=== PATIENT | male | born 1950 | race Caucasian/White ===

== ENCOUNTER → 2016-04-06 | Outpatient (CLI) | payer OTHER, MEDICARE | LOC: BHFA 08:30 | PROVIDERS: ATTEND Internal Medicine Cardiovascular Disease | DX: I35.0 Nonrheumatic aortic (valve) stenosis (principal) ==

== ENCOUNTER 2016-04-14 06:28 | Day surgery (SDC) | payer OTHER, MEDICARE ==
[2016-04-14] MEDS ORDERED: MIDAZOLAM 2 MG/2 ML VIAL IVP ONE (06:40)
[2016-04-14] MEDS ORDERED: BENZOCAINE UNIT DOSE SPRAY HURRICAINE MM ONE (06:40)
[2016-04-14] MEDS ORDERED: fentaNYL 100 MCG/2 ML INJ IVP ONE (06:40)
[2016-04-14] MEDS ORDERED: NS 1,000 ML IV ONE (06:40)
[2016-04-14 08:09] LABS: % IMMATURE GRANULYOCYTES 0.3 % (0.0-1.1); ABSOLUTE IMMATURE GRANULOCYTES 0.02 10^3/uL (0.00-0.10); ADD DIFF? NO; ADD MORPH? NO; ADD SCAN? NO; ATYPICAL LYMPHOCYTE FLAG 20 (0-99); FRAGMENT RBC FLAG 0 (0-99); HEMATOCRIT 43.6 % (40.0-51.0); HEMOGLOBIN 14.2 g/dL (13.7-17.5); LEFT SHIFT FLG 0 (0-99); LIPEMIA HEMOLYSIS FLAG 80 (0-99); MEAN CELL HEMOGLOBIN 30.1 pg (27.9-34.1); MEAN CELL HEMOGLOBIN CONCENTR. 32.6 g/dL (32.4-36.7); MEAN CELL VOLUME 92.6 fL (81.5-99.8); MEAN PLATELET VOLUME 10.5 fL (8.7-11.7); PLATELET CLUMPS FLAG 10 (0-99); PLATELET COUNT 236 10^3/uL (150-400); RED BLOOD CELL COUNT 4.71 10^6/uL (4.40-6.38); RED CELL DISTRIBUTION WIDTH 12.1 % (11.5-15.2)
[2016-04-14 08:22] LABS: INR 1.03 (0.83-1.16); PROTIME(PATIENT) 13.4 SEC (12.0-15.0)
[2016-04-14] MEDS ORDERED: MIDAZOLAM 2 MG/2 ML VIAL ONE ×3 (08:22→10:15)
[2016-04-14 08:23] LABS: APTT 32.6 SEC (23.0-38.0)
[2016-04-14] MEDS ORDERED: fentaNYL 100 MCG/2 ML INJ ONE ×2 (08:23→08:41)
[2016-04-14 08:31] LABS: ANION GAP 9 mEq/L (8-16); CARBON DIOXIDE 30 mEq/l (22-31); CHLORIDE 102 mEq/L (97-110); CREATININE 1.1 mg/dL (0.7-1.3); GLOMERULAR FILTRATION RATE > 60; GLUCOSE 131 mg/dL (70-100); POTASSIUM 4.3 mEq/L (3.5-5.2); SODIUM 141 mEq/L (134-144)
[2016-04-14] MEDS ORDERED: HEPARIN 10,000 UNIT/10 ML MDV ONE (08:41)
[2016-04-14] MEDS ORDERED: LIDOCAINE 1% 30 ML SDV ONE (08:41)
[2016-04-14] MEDS ORDERED: IOPAMIDOL (ISOVUE 370) 100 ML BTL IV ONE (08:42)
[2016-04-14] MEDS ORDERED: VERAPAMIL 5 MG/2 ML VIAL ONE (08:42)
--- NOTE | 2016-04-14 08:42 | CPEKG ---
Heart Rate: 64 RR Interval: 938 P-R Interval: 200 QRSD Interval: 82 QT Interval: 432 QTC Interval: 446 P [place]: 79 QRS [place]: 60 T Wave [place]: 39 EKG Severity - NORMAL ECG - EKG Impression: SINUS RHYTHM Electronically Signed By: Phillip Malloy 14-Apr-2016 09:01:34
[2016-04-14] MEDS ORDERED: ETOMIDATE 40 MG/20 ML INJ ONE ×2 (09:28→10:18)
[2016-04-14 09:58] LABS: CHOLESTEROL 176 mg/dL (140-220); CHOLESTEROL/HDL RATIO 2.89 RATIO (1.00-4.97); HIGH DENSITY LIPOPROTEIN 61 mg/dL (40-65); LDL/HDL RATIO 1.57 RATIO (1.00-3.64); LOW DENSITY LIPOPROTEIN 96 mg/dL (80-100); MAGNESIUM 1.9 mg/dL (1.6-2.3); NON-HIGH DENSITY LIPOPROTEIN 115 mg/dL (90-129); TRIGLYCERIDE 97 mg/dL (40-150); VERY LOW DENSITY LIPOPROTEINS 19 mg/dL (8-25)
--- NOTE | 2016-04-14 10:48 | PDDXCAT ---
Diagnostic Cath Note - . Date: 04/14/16 Intervention: None Indication: Valvular heart disease *Procedure 1. left heart catheterization 2. coronary angiography 3. left ventriculogram 4. right heart catheterization Access: Right radial artery, right brachial vein. A plethysmography trace assisted Silvino's Test was used to document dual artery supply to the right hand and index finger prior to access. *Materials Left Heart Cath size: 5F Left Heart Cath materials: JL3.5, JR4.0, pigtail Right Heart Cath size: 5F Right Heart Cath materials: PWP catheter *Findings-Left Heart Catheterization LM: 8 mm in size. Trifurcates into an LAD, ramus and circumflex system. LAD: The proximal LAD is 3.5 mm in size. There is no evidence of flow-limiting disease with ABDIRAHMAN III flow throughout. LCX: The circumflex obtuse marginal is 3.5 mm in size. There is no evidence of flow-limiting disease with ABDIRAHMAN III flow throughout. RCA: The RCA is dominant. There is no evidence of flow-limiting disease with ABDIRAHMAN III flow throughout. RAMUS: The ramus intermedius is 2.5 mm in size. There is no evidence of flow- limiting disease with ABDIRAHMAN III flow throughout. EDP: 21 mmHg LVEF: 60% Left ventriculogram findings: The ascending aorta is dilated without elo evidence of dissection. Peak to Peak Gradient: 72 mmHg Mean Gradient: 57 mmHg *Findings-Right Heart Catheterization RA: 9/7/6 mmHg RV: 27/3/9 mmHg PA: 25/8/15 mmHg PAOP: 16/19/14 mmHg AO: 105/48/73 mmHg RA SAT: 85.4% SVC SAT: 85.7% PA SAT: 83.4% (We believe the O2 difference in AO SAT and the mixed venous O2 was spuriously low. Thus, we adjusted the PA SAT to 70% for calculation of cardiac output and index). AO SAT: 97.3% CO: 6.36 L/min CI: 2.33 L/min/m^2 *Summary Complications: None Estimated blood loss: <50ml Closure method: TR Band Assessment: The patient has a bicuspid aortic valve with a simultaneous peak to peak gradient of 72 mmHg. The ascending aorta is also dilated. The patient also has known mitral valve prolapse without significant MR on the basis of ASIM performed today. He will need a surgical consultation for aortic valve replacement, possibly with simultaneous aortic root repair. 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 There was no evidence of coronary artery disease or flow-limiting abnormality with a normal ejection fraction at 60%. Patient Problems: Problems Problem Status Onset Primary localized osteoarthrosis, lower leg Chronic
[2016-04-14] MEDS ORDERED: INSULIN LISPRO 100 UNIT/ML SC ONE ×2 (12:00)
[2016-04-14] MEDS ORDERED: ONDANSETRON 4 MG/2 ML VIAL ONE (12:47)
== END 2016-04-14 14:46 | disposition home or self-care (01) ==
LOC: FCATH 06:28
PROVIDERS: ATTEND Internal Medicine Cardiovascular Disease
PROC: 4A023N8 Measurement of Cardiac Sampling and Pressure, Bilateral, Percutaneous Approach (ICD-10-PCS; principal; 2016-04-14)
PROC: B2151ZZ Fluoroscopy of Left Heart using Low Osmolar Contrast (ICD-10-PCS; 2016-04-14)
PROC: B2111ZZ Fluoroscopy of Multiple Coronary Arteries using Low Osmolar Contrast (ICD-10-PCS; 2016-04-14)
PROC: B246ZZ4 Ultrasonography of Right and Left Heart, Transesophageal (ICD-10-PCS; 2016-04-14)
DX: Q23.1 Congenital insufficiency of aortic valve (principal); I34.1 Nonrheumatic mitral (valve) prolapse; E78.5 Hyperlipidemia, unspecified; E10.39 Type 1 diabetes mellitus with other diabetic ophthalmic complication; Z79.4 Long term (current) use of insulin; Z82.49 Family history of ischemic heart disease and other diseases of the circulatory system
CPT/HCPCS: 93005; 93312; 93460; C1769; J1644; J1815; J2250; J2405; J3010; Q9967

== ENCOUNTER → 2016-04-20 | Outpatient (CLI) | payer OTHER, MEDICARE | LOC: BHFA 14:45 | PROVIDERS: ATTEND Internal Medicine Cardiovascular Disease | DX: Z01.810 Encounter for preprocedural cardiovascular examination (principal) ==

== ENCOUNTER → 2016-04-21 | Outpatient (CLI) | payer OTHER, MEDICARE | LOC: CIMAGING 11:20 | PROVIDERS: ATTEND Thoracic Surgery (Cardiothoracic Vascular Surgery) | DX: Z01.810 Encounter for preprocedural cardiovascular examination (principal); I08.0 Rheumatic disorders of both mitral and aortic valves | CPT/HCPCS: 71250-PO ==

== ENCOUNTER 2016-05-05 05:44 | Inpatient (IN) | payer OTHER, MEDICARE ==
[2016-05-03 11:03] LABS: HEMOGLOBIN A1C 7.2 % (4.0-6.0)
[2016-05-05] MEDS ORDERED: LIDOCAINE 1% 2 ML INJ ONE (05:59)
[2016-05-05] MEDS ORDERED: PHENYLEPHRINE HCL 50 MG in NS 250 ML IV ONE (06:00)
[2016-05-05] MEDS ORDERED: LIDOCAINE 1% 5 ML SDV ID PRN ×2 (06:00→06:19)
[2016-05-05] MEDS ORDERED: NS 1,000 ML IV ONE (06:00)
[2016-05-05] MEDS ORDERED: CHLORHEXIDINE GLUC HIBICLENS 118 ML BTL TP SCH (06:00)
[2016-05-05] MEDS ORDERED: ceFAZolin 2 GM/DEXTROSE 100 ML IV ONE (06:00)
[2016-05-05] MEDS ORDERED: NOREPINEPHRINE BITARTRATE 16 MG in NS 250 ML IV ONE (06:00)
[2016-05-05] MEDS ORDERED: SODIUM BICARBONATE 20 MEQ, LIDOCAINE 1% 10 ML in NORMOSOL-R 1,000 ML MISC ONE (06:00)
[2016-05-05] MEDS ORDERED: MUPIROCIN 2% 22 GM OINT NS ONE (06:00)
[2016-05-05] MEDS ORDERED: AMINOCAPROIC ACID 5 GM/20 ML VIAL IV ONE (06:00)
[2016-05-05] MEDS ORDERED: niCARdipine/NACL 200 ML IV SCH (06:00)
[2016-05-05] MEDS ORDERED: INSULIN REGULAR HUMAN 100 UNIT in NS 100 ML IV ONE (06:00)
[2016-05-05] MEDS ORDERED: MANNITOL 25% 12.5 GM/50 ML VIAL IV ONE (06:00)
[2016-05-05] MEDS ORDERED: CITRATE DEXTROSE SOLN 500 ML BAG MISC ONE (06:00)
[2016-05-05] MEDS ORDERED: LR 1,000 ML IV ONE (06:19)
[2016-05-05] MEDS ORDERED: PROTAMINE SULFATE 50 MG/5 ML VIAL IVP ONE (06:29)
[2016-05-05] MEDS ORDERED: ALBUMIN 5% 250 ML BOTTLE IV ONE ×2 (06:29→12:31)
[2016-05-05] MEDS ORDERED: NA BICARBONATE 50 MEQ/50 ML VIAL ONE (06:30)
[2016-05-05] MEDS ORDERED: CITRATE DEXTROSE SOLN 500 ML BAG ONE (06:30)
[2016-05-05] MEDS ORDERED: LIDOCAINE 2% 100 MG/5 ML SYR ONE (06:30)
[2016-05-05] MEDS ORDERED: POTASSIUM Cl (KCl) 20 MEQ/50 ML BAG IV ONE (06:30)
[2016-05-05] MEDS ORDERED: AMINOCAPROIC ACID 5 GM/20 ML VIAL ONE (06:30)
[2016-05-05] MEDS ORDERED: niCARdipine/NACL/200 ML BAG IV ONE (06:30)
[2016-05-05] MEDS ORDERED: DOPamine/DEXTROSE/250 ML BAG IV ONE (06:30)
[2016-05-05] MEDS ORDERED: CALCIUM CHLORIDE 1 GM/10 ML INJ ONE (06:30)
[2016-05-05] MEDS ORDERED: MILRINONE/DEXTROSE/100 ML BAG IV ONE (06:30)
[2016-05-05] MEDS ORDERED: ceFAZolin 1 GM VIAL ONE (06:31)
[2016-05-05] MEDS ORDERED: HEPARIN 10,000 UNIT/10 ML MDV ONE (06:31)
[2016-05-05] MEDS ORDERED: ADENOSINE 6 MG/2 ML VIAL ONE (06:31)
[2016-05-05] MEDS ORDERED: methylPREDNISolone SOD SUCC 1 GM/8 ML VIAL ONE (06:31)
[2016-05-05] MEDS ORDERED: MAGNESIUM SULFATE 1 GM/2 ML VIAL ONE (06:31)
[2016-05-05] MEDS ORDERED: AMIODARONE HCL 150 MG/3 ML VIAL ONE (06:31)
[2016-05-05] MEDS ORDERED: MIDAZOLAM 2 MG/2 ML VIAL ONE (07:13)
[2016-05-05] MEDS ORDERED: PROPOFOL/EMULSION 500 MG/50 ML BOTTLE IV ONE (07:14)
[2016-05-05] MEDS ORDERED: SUFentanil 250 MCG/5 ML AMP ONE (07:14)
[2016-05-05] MEDS ORDERED: MINERAL OIL 10 ML VIAL TP ONE (07:25)
[2016-05-05] MEDS ORDERED: SKIN ADHESIVE (DERMABOND) 1 EACH TP ONE (07:25)
[2016-05-05] MEDS ORDERED: fentaNYL 100 MCG/2 ML INJ ONE (07:31)
[2016-05-05] MEDS ORDERED: DEXMEDETOMIDINE HCL 400 MCG in NS 100 ML IV SCH (09:00)
[2016-05-05] MEDS ORDERED: morphINE *ANESTHESIA ONLY* 10 MG/ML VIAL ONE (10:05)
[2016-05-05] MEDS ORDERED: SUGAMMADEX SODIUM 200 MG/2 ML VIAL IVP ONE (11:35)
[2016-05-05] MEDS ORDERED: ACETAMINOPHEN 650 MG SUPP PR PRN (12:12)
[2016-05-05] MEDS ORDERED: PANTOPRAZOLE SODIUM 40 MG in NS 100 ML IV ONE (12:12)
[2016-05-05] MEDS ORDERED: D50W 25 GM/50 ML SYR IVP PRN (12:12)
[2016-05-05] MEDS ORDERED: LACTULOSE 20 GM/30 ML UDCUP PO PRN (12:12)
[2016-05-05] MEDS ORDERED: CEPACOL LOZENGE PO PRN (12:12)
[2016-05-05] MEDS ORDERED: SODIUM CL NASAL 45 ML BTL EACHNARE PRN (12:12)
[2016-05-05] MEDS ORDERED: BISACODYL 10 MG SUPP PR PRN (12:12)
[2016-05-05] MEDS ORDERED: ONDANSETRON DISINTEGRATING 4 MG TAB PO PRN (12:12)
[2016-05-05] MEDS ORDERED: MAGNESIUM SULF 2 GM/WATER 50 ML IV ONE (12:12)
[2016-05-05] MEDS ORDERED: MEPERIDINE 25 MG/ML SYR IVP PRN (12:12)
[2016-05-05] MEDS ORDERED: POLYETHYLENE GLYCOL 3350 17 GM PKT PO PRN (12:12)
[2016-05-05] MEDS ORDERED: MAGNESIUM HYDROXIDE 30 ML UDCUP PO PRN (12:12)
--- NOTE | 2016-05-05 12:14 | POSTOPPROG ---
Post Op Note Date of Operation: 05/05/16 Surgeon: Leoncio Chambers District Wildlife Manager: Art Anesthesiologist: Zara Anesthesia: GET(General Endotracheal) Pre-op Diagnosis: , ascending aneurysm Procedure: Aortic root replacement and ascending aorta #25 Magna/28mm hemashield , Atri Inf/Abcess present in the surg proc area at time of surgery?: No EBL: 50-100 Drains: Other (2 blakes)
[2016-05-05] MEDS ORDERED: NS 1,000 ML IV SCH (12:15)
[2016-05-05] MEDS ORDERED: INSULIN REGULAR HUMAN 100 UNIT in NS 100 ML IV SCH (12:30)
[2016-05-05 12:53] LABS: HEMATOCRIT 26.9 % (40.0-51.0); MEAN CELL HEMOGLOBIN CONCENTR. 33.5 g/dL (32.4-36.7); MEAN CELL VOLUME 89.7 fL (81.5-99.8); RED CELL DISTRIBUTION WIDTH 11.9 % (11.5-15.2)
[2016-05-05 12:54] LABS: CALCULATED OXYGEN SATURATION 100 % (92-95)
[2016-05-05] MEDS ORDERED: NALOXONE HCL 0.4 MG/ML INJ ONE (12:56)
[2016-05-05] MEDS ORDERED: ALBUMIN 5% 500 ML BOTTLE IV ONE (13:14)
[2016-05-05] MEDS ORDERED: KETOROLAC 15 MG/1 ML SDV IVP SCH ×2 (13:18→18:00)
--- NOTE | 2016-05-05 13:28 | GOP ---
[f rep st] OPERATIVE REPORT DATE OF OPERATION: 05/05/2016 SURGEON: Leoncio Chambers DO BOARDING MOTHER: Piyush Cordova PA-C ANESTHESIOLOGIST: Ramsey Chavez MD. PREOPERATIVE DIAGNOSIS: 1. Aortic root and ascending aortic aneurysm. 2. Aortic stenosis. POSTOPERATIVE DIAGNOSIS: 1. Aortic root and ascending aortic aneurysm. 2. Aortic stenosis. PROCEDURE PERFORMED: 1. Aortic root replacement with a 25 mm Magna valve inside a 28 mm Hemashield graft with re-implant ation of the coronaries. 2. AtriClip of the left atrial appendage. FINDINGS: The patient was noted to have a 4.6 cm ascending aorta, which appeared to be calcified on preoperative CT scanning. He also had critical aortic stenosis with a bicuspid aortic valve. He w as consented for likely aortic arch saad-arch due to the concern about a calcification with likely r ight axillary cannulation and circulatory arrest. EEG monitoring was arranged and placed preoperati vely. DESCRIPTION OF PROCEDURE: He was brought to the operating room, intubated. Monitoring lines were p laced. He was prepped and draped in a sterile classical manner. Sternotomy was performed. Upon en tering the pericardium, the area, in fact, had no significant calcification on palpation or with ace face echo placed on the aorta. It appeared to be just a hyperlucent wall due to some probably incre ased deposition, but no obvious calcification. It was thin-walled and quite pliable. I, therefore, cannulated him in a transverse arch under echo guidance without difficulty, where the aorta was nor mal thickness and soft. Cannula placed beyond the left subclavian. We also placed a right atrial c annula. Cardiopulmonary bypass was begun. The cross-clamp was applied at the base of the innominat e artery across the saad-arch, and with antegrade cardioplegia administered as well as retrograde ca rdioplegia, topical hypothermia, and systemic cooling. We then resected the entire aneurysm down to the sinotubular junction. Upon inspecting the valve, it was a heavily calcified, fused, markedly s tenotic valve with calcium growing into the sinuses. This was debrided. The annulus was debrided. The valve was excised. CO2 was infused, and the LV chamber was irrigated. Because of the true bic uspid nature, with the commissure going all the way to the sinotubular junction, and also the fact t hat his sinuses appeared somewhat enlarged and very thin walled, I decided to do a root replacement so both coronary arteries were excised as buttons. We then sized the patient for a 25 Magna valve a nd a 28 Hemashield graft over that valve, which recreated our own conduit using horizontal mattress pledgeted sutures through the annulus and then through the valve and the graft. This was secured in place with Cor-Knots. We then fashioned a left coronary button, which was anastomosed to the graft with 5-0 Prolene suture. We then did the same on the right, measuring it carefully with the ventri domenico distended. This was completed without difficulty. BioGlue was applied to all those surfaces. We then did an end-to-end anastomosis to the aorta at the innominate artery with the graft with cont inuous running 3-0 Prolene slightly beveled. BioGlue was applied to the external anastomosis there as well. A vent was placed in the graft. The cross-clamp was removed with suction on the ascending aortic vent and LV stump. When no further air was identified, the patient was weaned from bypass w ithout difficulty. The heparin was reversed with protamine. The cannula removed and oversewn. Two ventricular pacing wires, 2 mediastinal drains were placed. The thymic fat and pericardium were cl osed. Transesophageal echo revealed good valvular function and good ventricular function. The ster num was closed in standard fashion. Patient was returned to the ICU in stable condition, extubated from the OR. /[id number]/MODL
[2016-05-05] MEDS ORDERED: ALBUMIN 5% 500 ML IV ONE ×3 (13:30→21:30)
[2016-05-05] MEDS ORDERED: ceFAZolin 2 GM/DEXTROSE 100 ML IV SCH (14:00)
[2016-05-05] MEDS ORDERED: D50W 25 GM/50 ML VIAL IVP ONE (14:00)
[2016-05-05] MEDS ORDERED: NALOXONE HCL 0.4 MG/ML INJ IVP ONE (14:00)
[2016-05-05 14:08] LABS: HEMATOCRIT 23.2 % (40.0-51.0); HEMOGLOBIN 7.8 g/dL (13.7-17.5); MEAN CELL HEMOGLOBIN 30.5 pg (27.9-34.1); MEAN CELL HEMOGLOBIN CONCENTR. 33.6 g/dL (32.4-36.7); MEAN CELL VOLUME 90.6 fL (81.5-99.8); RED BLOOD CELL COUNT 2.56 10^6/uL (4.40-6.38); RED CELL DISTRIBUTION WIDTH 12.1 % (11.5-15.2)
[2016-05-05] MEDS ORDERED: SODIUM BICARBONATE 50 MEQ/50 ML SYR ONE (14:19)
[2016-05-05] MEDS: POTASSIUM Cl (KCl) 50 ML IV PRN ×2 (14:30→15:03)
[2016-05-05] MEDS: ALBUMIN 5% 250 ML IV PRN ×2 (14:53→14:54)
[2016-05-05 16:48] LABS: HEMATOCRIT 28.4 % (40.0-51.0); HEMOGLOBIN 9.4 g/dL (13.7-17.5); MEAN CELL HEMOGLOBIN CONCENTR. 33.1 g/dL (32.4-36.7); MEAN CELL VOLUME 87.7 fL (81.5-99.8); RED BLOOD CELL COUNT 3.24 10^6/uL (4.40-6.38); RED CELL DISTRIBUTION WIDTH 12.9 % (11.5-15.2)
[2016-05-05] MEDS: METOCLOPRAMIDE 10 MG/2 ML VIAL IVP PRN ×2 (18:38→19:36)
[2016-05-05 19:36] LABS: CALCULATED OXYGEN SATURATION 99 % (92-95)
[2016-05-05] MEDS: ONDANSETRON 4 MG/2 ML VIAL IVP PRN (19:36)
[2016-05-05] MEDS: fentaNYL 100 MCG/2 ML INJ IVP PRN (19:52)
[2016-05-05] MEDS: KETOROLAC 30 MG/1 ML SDV IVP SCH (20:16)
[2016-05-05] MEDS: ceFAZolin 2 GM/DEXTROSE 100 ML IV SCH (20:16)
[2016-05-05] MEDS: SENNOSIDES/DOCUSATE SODIUM TAB PO SCH (20:21)
[2016-05-05] MEDS: MUPIROCIN 2% 22 GM OINT NS SCH (20:21)
[2016-05-05] MEDS ORDERED: CHLORHEXIDINE GLUCONATE 15 ML UDL PO SCH (21:00)
[2016-05-05] MEDS ORDERED: NOREPINEPHRINE BITARTRATE 16 MG in D5W 250 ML IV SCH (21:30)
[2016-05-06] MEDS: ceFAZolin 2 GM/DEXTROSE 100 ML IV SCH ×3 (03:03→22:11)
[2016-05-06] MEDS: KETOROLAC 30 MG/1 ML SDV IVP SCH ×4 (03:03→21:29)
[2016-05-06 05:16] LABS: % IMMATURE GRANULYOCYTES 0.6 % (0.0-1.1); ABSOLUTE IMMATURE GRANULOCYTES 0.07 10^3/uL (0.00-0.10); ADD DIFF? NO; ADD MORPH? NO; ADD SCAN? NO; ATYPICAL LYMPHOCYTE FLAG 0 (0-99); FRAGMENT RBC FLAG 0 (0-99); HEMOGLOBIN 10.8 g/dL (13.7-17.5); LEFT SHIFT FLG 0 (0-99); LIPEMIA HEMOLYSIS FLAG 90 (0-99); MEAN CELL HEMOGLOBIN 29.4 pg (27.9-34.1); MEAN CELL HEMOGLOBIN CONCENTR. 33.8 g/dL (32.4-36.7); MEAN CELL VOLUME 87.2 fL (81.5-99.8); MEAN PLATELET VOLUME 10.9 fL (8.7-11.7); PLATELET CLUMPS FLAG 0 (0-99); PLATELET COUNT 85 10^3/uL (150-400); RED BLOOD CELL COUNT 3.67 10^6/uL (4.40-6.38); RED CELL DISTRIBUTION WIDTH 14.6 % (11.5-15.2)
[2016-05-06] MEDS: HEPARIN 5,000 UNIT/0.5 ML SYR SC SCH ×2 (05:19→14:18)
[2016-05-06 05:25] LABS: ANION GAP 10 mEq/L (8-16); CARBON DIOXIDE 23 mEq/l (22-31); CHLORIDE 113 mEq/L (97-110); GLOMERULAR FILTRATION RATE > 60; GLUCOSE 94 mg/dL (70-100); POTASSIUM 4.6 mEq/L (3.5-5.2); SODIUM 146 mEq/L (134-144)
[2016-05-06] MEDS: HYDROCODONE/APAP 5/325 TAB PO PRN ×2 (06:55→17:41)
--- NOTE | 2016-05-06 08:22 | SOAPPROG ---
SOAP Progress Note Assessment/Plan: POD#1: AVR with #25 Magna bioprosthesis inside a #28 Hemashield graft with reimplantation of coronary buttons Critical /BAV and ascending aortic aneurysm s/p AVR with #25 Magna bioprosthesis inside a #28 Hemashield graft with reimplantation of coronary buttons. - 2 mcg of Levophed shut-off this AM. OK for SBP in 90s. AL to be removed once BP stabilizes. - Santos drains to bulb suction - ASA for thromboprophylaxis / BB when appropriate - Heparin SQ for DVT prophylaxis once platelets > 100 - Ambulation Left mild-moderate PTX, asymptomatic, untreated - Monitor Diabetes, insulin dependent - Transition gtt to ISS - Home meds to restart tomorrow, sooner if good PO intake 05/06/16 08:36 Subjective: Feels well. Some incisional CP. No SOB. Objective: Vital Signs Temp Pulse Resp BP Pulse Ox 36.6 C 68 18 130/48 H 98 05/06/16 06:00 05/06/16 06:00 05/06/16 06:00 05/06/16 06:00 05/06/16 06:00 Laboratory Results 05/06/16 05:05 05/06/16 05:05 05/05/16 05/06/16 05/07/16 05:59 05:59 05:59 Intake Total 5566.5 Output Total 2465 Balance 3101.5 Physical Exam - Physical Exam General Appearance: WD/WN, alert, no apparent distress EENT: No scleral icterus (R), No scleral icterus (L) Neck: supple, normal inspection, tender midline, No subcutaneous emphysema Respiratory: No respiratory distress Cardiac/Chest: regular rate, rhythm Abdomen: non-tender, soft, No distended Skin: normal color, warm/dry Extremities: No pedal edema Neuro/Psych: no motor/sensory deficits, alert, normal mood/affect, oriented x 3 ICD10 Worksheet Patient Problems: Problems Problem Status Onset Aortic aneurysm Acute Bioprosthetic aortic valve replacement during current hospitalization Acute Hx of aortic root repair Acute Aortic stenosis, severe Chronic Bicuspid aortic valve Chronic Diabetes mellitus Chronic Primary localized osteoarthrosis, lower leg Chronic
[2016-05-06] MEDS ORDERED: ASPIRIN 81 MG CHEWABLE TAB PO SCH (09:00)
[2016-05-06] MEDS ORDERED: ASPIRIN EC 81 MG TAB PO SCH (09:00)
[2016-05-06] MEDS ORDERED: ASPIRIN 81 MG CHEWABLE TAB TUBE PRN (09:00)
[2016-05-06] MEDS: PANTOPRAZOLE SODIUM 40 MG TAB PO SCH ×2 (09:29→11:32)
[2016-05-06] MEDS: SENNOSIDES/DOCUSATE SODIUM TAB PO SCH ×2 (09:48→21:30)
[2016-05-06] MEDS: MUPIROCIN 2% 22 GM OINT NS SCH ×2 (09:49→21:31)
[2016-05-06] MEDS: fentaNYL 100 MCG/2 ML INJ IVP PRN (12:00)
[2016-05-06] MEDS: METOCLOPRAMIDE 10 MG/2 ML VIAL IVP PRN (12:00)
[2016-05-06] MEDS: INSULIN LISPRO 100 UNIT/ML SC SCH ×2 (12:02→17:52)
[2016-05-06] MEDS: ASPIRIN 81 MG CHEWABLE TAB PO SCH (13:51)
[2016-05-06] MEDS: ONDANSETRON 4 MG/2 ML VIAL IVP PRN ×2 (14:17→17:41)
[2016-05-06] MEDS: oxyCODONE IR 5 MG TAB PO PRN (21:30)
[2016-05-06] MEDS: METOPROLOL TARTRATE 25 MG TAB PO SCH (21:30)
[2016-05-06] MEDS: ACETAMINOPHEN 325 MG TAB PO PRN (21:32)
[2016-05-07] MEDS: traMADol 50 MG TAB PO PRN (01:28)
[2016-05-07] MEDS: oxyCODONE IR 5 MG TAB PO PRN ×4 (03:03→16:14)
[2016-05-07] MEDS: KETOROLAC 30 MG/1 ML SDV IVP SCH (03:04)
[2016-05-07] MEDS: ceFAZolin 2 GM/DEXTROSE 100 ML IV SCH (04:09)
[2016-05-07 04:53] LABS: POTASSIUM 5.2 mEq/L (3.5-5.2)
[2016-05-07] MEDS: ACETAMINOPHEN 325 MG TAB PO PRN ×4 (06:43→20:37)
[2016-05-07] MEDS ORDERED: FUROSEMIDE 40 MG/4 ML VIAL IVP ONE (08:02)
[2016-05-07] MEDS: INSULIN LISPRO 100 UNIT/ML SC SCH (08:14)
[2016-05-07] MEDS: INSULIN LISPRO SQ PRN ×3 (08:15→18:09)
[2016-05-07] MEDS ORDERED: INSULIN LISPRO 100 UNIT/ML SC SCH (08:30)
[2016-05-07] MEDS: ASPIRIN 81 MG CHEWABLE TAB PO SCH (09:05)
[2016-05-07] MEDS: METOPROLOL TARTRATE 25 MG TAB PO SCH ×2 (09:05→20:37)
[2016-05-07] MEDS: PANTOPRAZOLE SODIUM 40 MG TAB PO SCH (09:06)
[2016-05-07] MEDS: SENNOSIDES/DOCUSATE SODIUM TAB PO SCH ×2 (09:06→20:40)
[2016-05-07] MEDS: MUPIROCIN 2% 22 GM OINT NS SCH (09:07)
--- NOTE | 2016-05-07 09:20 | SOAPPROG ---
SOAP Progress Note Assessment/Plan: Assessment: POD#2 AVR/root/asc ao replacement with composite valved conduit using a #25 Magna bioprosthesis BAV w sx severe and aneurysmal ascending aortic - s/p tissue AVR w root/asc ao replacement. Stable early postop course. Modest volume overload. BP control and AF prophylaxis with BB as tolerated. Antithrombotic prophylaxis with ASA alone pending stability of rhythm. Postop asx left PTX - Mild to moderate volume loss. Unchanged by serial imaging. Tubes converted to bulb suction without air leak. Follow. Acute expected blood loss anemia with thrombocytopenia - Stable s/p 2u PRBC. Platelets yet to rebound. Care w VTE prophylaxis. DM1, controlled - Postop hyperglycemia managed with insulin gtt, transitioning to basal/prandial/SSI as per ICU protocol. Patient well versed in glycemic control and to assume self-management this am. Plan: Keep chest tubes and TCPWs. Ck CXR tomorrow. Possible removal post mediastinal tube. Hold NSAID. Begin daily diuresis. Likely could start ACEI tonight. Pt to monitor FSBG and self-administer insulin accordingly. 05/07/16 09:16 Subjective: Doing well. Improving appetite and mobility. Some chronic back pain controlled with oxy. Objective: Vital Signs Temp Pulse Resp BP Pulse Ox 36.8 C 72 19 138/76 H 96 05/07/16 07:27 05/07/16 07:27 05/07/16 07:27 05/07/16 07:27 05/07/16 07:27 Laboratory Results 05/07/16 04:05 05/07/16 04:05 05/06/16 05/07/16 05/08/16 05:59 05:59 06:59 Intake Total 5566.5 950 Output Total 2465 1095 Balance 3101.5 -145 HR and BP controlled. Min suppl O2 req. CTs holding suction, output below removal criteria. I still >O. Physical Exam - Physical Exam General Appearance: alert, no apparent distress Respiratory: lungs clear (and equal), other (blakes x 2 to bulb suction, sanguinous drainage) Cardiac/Chest: regular rate, rhythm, other (Sternum grossly stable. Sternotomy CDI. Vwire intact.) Abdomen: non-tender, soft Skin: warm/dry Extremities: swelling (trace-1+) ICD10 Worksheet Patient Problems: Problems Problem Status Onset Aortic aneurysm Acute Bioprosthetic aortic valve replacement during current hospitalization Acute Hx of aortic root repair Acute Aortic stenosis, severe Chronic Bicuspid aortic valve Chronic Diabetes mellitus Chronic Primary localized osteoarthrosis, lower leg Chronic
[2016-05-07] MEDS: INSULIN GLARGINE 14 UNIT SC SCH (15:58)
[2016-05-07] MEDS: LISINOPRIL 5 MG TAB PO SCH (20:22)
[2016-05-08] MEDS: oxyCODONE IR 5 MG TAB PO PRN ×2 (01:02→05:39)
[2016-05-08] MEDS: ACETAMINOPHEN 325 MG TAB PO PRN ×4 (01:02→21:48)
[2016-05-08] MEDS: traMADol 50 MG TAB PO PRN (03:50)
[2016-05-08 06:32] LABS: HEMATOCRIT 32.7 % (40.0-51.0); HEMOGLOBIN 10.9 g/dL (13.7-17.5); MEAN CELL HEMOGLOBIN 29.1 pg (27.9-34.1); MEAN CELL HEMOGLOBIN CONCENTR. 33.3 g/dL (32.4-36.7); MEAN CELL VOLUME 87.2 fL (81.5-99.8); RED BLOOD CELL COUNT 3.75 10^6/uL (4.40-6.38); RED CELL DISTRIBUTION WIDTH 14.1 % (11.5-15.2)
[2016-05-08 07:34] LABS: ANION GAP 10 mEq/L (8-16); CALCIUM 8.6 mg/dL (8.5-10.4); CARBON DIOXIDE 26 mEq/l (22-31); CHLORIDE 102 mEq/L (97-110); GLOMERULAR FILTRATION RATE > 60; GLUCOSE 55 mg/dL (70-100); POTASSIUM 4.2 mEq/L (3.5-5.2); SODIUM 138 mEq/L (134-144)
[2016-05-08] MEDS: INSULIN LISPRO SQ PRN (08:09)
--- NOTE | 2016-05-08 09:01 | SOAPPROG ---
SOAP Progress Note Assessment/Plan: Assessment: POD#3 AVR/root/asc ao replacement with composite valved conduit using a #25 Magna bioprosthesis BAV w sx severe and aneurysmal ascending aortic - s/p tissue AVR w root/asc ao replacement. Stable early postop course. Modest volume overload. BP control and AF prophylaxis with BB as tolerated. Antithrombotic prophylaxis with ASA alone pending stability of rhythm. Postop asx left PTX - Mild to moderate volume loss. Unchanged by serial imaging. Tubes converted to bulb suction without air leak. Unlikely to be in communication with air pocket. Follow. Acute expected blood loss anemia with thrombocytopenia - Stable s/p 2u PRBC. Platelets rebound noted. DM1, controlled - Postop hyperglycemia managed with insulin gtt, transitioning to basal/prandial/SSI as per ICU protocol. Patient well versed in glycemic control and self-management assumed. Plan: Vwire and chest tubes removed. Cont daily diuresis prn. Cont metoprolol 12.5 mg BID. Cont lisinopril 2.5 mg hs. Cont inc activity and pulm toilet. Wenceslao CXR tomorrow. Baseline postop echo tomorrow. Dispo - Anticipate home tomorrow if PTX stable. 05/08/16 08:58 Subjective: Doing ok. Backache main discomfort. Enthused to try stair work today and get home tomorrow. Objective: Vital Signs Temp Pulse Resp BP Pulse Ox 36.8 C 82 21 H 142/72 H 96 05/08/16 07:30 05/08/16 07:30 05/08/16 07:30 05/08/16 07:30 05/08/16 07:30 Laboratory Results 05/08/16 06:20 05/08/16 06:20 05/07/16 05/08/16 05/09/16 04:59 05:59 05:59 Intake Total Output Total Balance BP and HR controlled. Min suppl O2 req. CXR notable for basilar atelectasis, stable ? sl smaller left apical PTX. Improving fluid balance. CTOP below removal criteria. Physical Exam - Physical Exam General Appearance: alert, no apparent distress Respiratory: lungs clear, other (blakes x 2 to bulb suction, serosang drainage. Both tubes pulled without incident.) Cardiac/Chest: regular rate, rhythm, other (Sternum grossly stable. Sternotomy CDI. V wire removed without difficulty) Abdomen: non-tender, soft Skin: warm/dry Extremities: swelling (1+) ICD10 Worksheet Patient Problems: Problems Problem Status Onset Aortic aneurysm Acute Bioprosthetic aortic valve replacement during current hospitalization Acute Hx of aortic root repair Acute Aortic stenosis, severe Chronic Bicuspid aortic valve Chronic Diabetes mellitus Chronic Primary localized osteoarthrosis, lower leg Chronic
[2016-05-08] MEDS: ASPIRIN 81 MG CHEWABLE TAB PO SCH (10:31)
[2016-05-08] MEDS: PANTOPRAZOLE SODIUM 40 MG TAB PO SCH (10:31)
[2016-05-08] MEDS: METOPROLOL TARTRATE 25 MG TAB PO SCH ×2 (10:32→21:49)
[2016-05-08] MEDS: SENNOSIDES/DOCUSATE SODIUM TAB PO SCH ×2 (10:34→21:50)
[2016-05-08] MEDS ORDERED: traMADol 50 MG TAB PO PRN (12:52)
[2016-05-08] MEDS ORDERED: FUROSEMIDE 20 MG TAB PO ONE (15:00)
[2016-05-08] MEDS ORDERED: POTASSIUM CL 20 MEQ TAB PO ONE (15:00)
[2016-05-08] MEDS: INSULIN GLARGINE 14 UNIT SC SCH (16:08)
[2016-05-08] MEDS ORDERED: ATORVASTATIN CALCIUM 40 MG TAB PO SCH (18:00)
[2016-05-08] MEDS: LISINOPRIL 5 MG TAB PO SCH (21:46)
[2016-05-09] MEDS: ACETAMINOPHEN 325 MG TAB PO PRN (02:04)
[2016-05-09 06:26] LABS: POTASSIUM 4.4 mEq/L (3.5-5.2)
[2016-05-09] MEDS: HYDROCODONE/APAP 5/325 TAB PO PRN ×2 (07:32→13:43)
[2016-05-09] MEDS: SENNOSIDES/DOCUSATE SODIUM TAB PO SCH (09:53)
[2016-05-09] MEDS: METOPROLOL TARTRATE 25 MG TAB PO SCH (09:53)
[2016-05-09] MEDS: PANTOPRAZOLE SODIUM 40 MG TAB PO SCH (09:54)
[2016-05-09] MEDS: ASPIRIN 81 MG CHEWABLE TAB PO SCH (09:54)
--- NOTE | 2016-05-09 09:55 | SOAPPROG ---
SOAP Progress Note Assessment/Plan: Assessment: POD#4 AVR/root/asc ao replacement with composite valved conduit using a #25 Magna bioprosthesis. Prophylactic AtriClip LLAA. BAV w sx severe and aneurysmal ascending aortic - s/p tissue AVR w root/asc ao replacement. Stable early postop course. Modest volume overload. BP control and AF prophylaxis with BB as tolerated. Antithrombotic prophylaxis with ASA alone. Postop asx left PTX - Mild to moderate volume loss. Unchanged by serial imaging. Tubes converted to bulb suction without air leak and removed yest without incident. Acute expected blood loss anemia with thrombocytopenia - Stable s/p 2u PRBC. Platelets rebound noted. DM1, controlled - Postop hyperglycemia managed with insulin gtt, transitioning to basal/prandial/SSI as per ICU protocol. Patient well versed in glycemic control and self-management assumed. Plan: Ok for discharge. Instructions re diet, meds, activity, f/u and wound care to be reviewed in presence of . 05/09/16 09:54 Subjective: Feeling fine. Not as peppy as yest but would just as soon go home. Objective: Vital Signs Temp Pulse Resp BP Pulse Ox 36.6 C 76 20 126/68 H 92 05/09/16 07:50 05/09/16 07:50 05/09/16 07:50 05/09/16 07:50 05/09/16 07:50 Laboratory Results 05/08/16 06:20 05/09/16 05:35 05/08/16 05/09/16 05/10/16 05:59 05:59 05:59 Intake Total 1055 Output Total 1350 Balance -295 HR and BP controlled. Off O2 at rest. CXR-> Decr basilar atelectasis. Unchanged left PTX. Echo-> Nl biV size and fx, no atrial distention, nl bioprosthetic valve fx, mild MR, mild TR. Stable fluid balance and K. Physical Exam - Physical Exam General Appearance: alert, no apparent distress Respiratory: lungs clear (grossly) Cardiac/Chest: regular rate, rhythm, other (Sternotomy and LLE venotomy CDI) Abdomen: non-tender, soft Skin: warm/dry Extremities: swelling (1+) ICD10 Worksheet Patient Problems: Problems Problem Status Onset Aortic aneurysm Acute Bioprosthetic aortic valve replacement during current hospitalization Acute Hx of aortic root repair Acute Aortic stenosis, severe Chronic Bicuspid aortic valve Chronic Diabetes mellitus Chronic Primary localized osteoarthrosis, lower leg Chronic
[2016-05-09] MEDS ORDERED: FUROSEMIDE 20 MG TAB PO SCH (10:00)
[2016-05-09] MEDS: INSULIN LISPRO SQ PRN (11:47)
[2016-05-09 11:54] VITALS: TEMP 98.8
--- NOTE | 2016-05-09 12:54 | ECHO ---
[id number] + + [address] : : [place] [address] : : [phone] + + Adult Echocardiographic Report + ----+ :Name: Tracee HUSSEINgarcia Date: 05/09/2016 08:09 AM : : Hospital Admission Number: [id number] Location: 204: :: 1950 Gender: Male Height: 70 in : :Age: 66 yrs Race: WH Weight: 168 lb : :Reason For Study: S/P AVR 25mm CE magna bovine pericardial : :valve BSA: 1.9 meters2 : + ----+ MMode/2D Measurements \T\ Calculations LVIDd: 4.1 cm EDV(Teich): 75.7 mlLVLd ap4: 8.6 cm SV(MOD-sp4): 50.0 ml EDV(MOD-sp4): 64.0 ml LVLs ap4: 6.5 cm ESV(MOD-sp4): 14.0 ml EF(MOD-sp4): 78.1 % Normal Measurement Values: + + :LVIDd (3.5-5.7cm) IVSd (0.6-1.1cm) LVPWd (0.6-1.1cm) Aortic Root (2.0-3.7cm)Left Atrium (1.5-4.0cm): :LV Vol(d) (76-115ml) LV Vol(s) (29-48ml) Ejec Fraction (50-65%)PV Lucho (0.6- 1.2m/s) TV Lucho (0.4-1.0m/s) : :MV E Lucho (0.8-1.0m/s)MV A Lucho (0.3-1.0m/s)LVOT Lucho (0.7-1.2m/s) Asc Ao Lucho ( 0.9-1.8m/s) : + + Doppler Measurements \T\ Calculations MV E max lucho: 133.8 cm/sec Ao mean P.2 mmHg MV A max lucho: 62.7 cm/sec Ao V2 mean: 136.7 cm/sec MV E/A: 2.1 Ao V2 VTI: 37.2 cm MV dec time: 0.18 sec Left Ventricle The left ventricle is normal in size. There is mild concentric left ventricular hypertrophy. The left ventricle is hyperdynamic. Ejection Fraction = 70-75%. No regional wall motion abnormalities noted. Right Ventricle The right ventricle is normal in size and function. Atria The left atrial size is normal. Right atrial size is normal. The interatrial septum is intact with no evidence for an atrial septal defect. Mitral Valve The mitral valve is normal in structure and function. There is no evidence of mitral valve prolapse. There is no mitral valve stenosis. There is mild mitral regurgitation. Tricuspid Valve Normal tricuspid valve. There is mild tricuspid regurgitation. Aortic Valve There is a bioprosthetic aortic valve. The prosthetic aortic valve is well- seated. AV max PG is 17mmHG. AV mean PG is 8mmHG. Pulmonic Valve The pulmonic valve is not well visualized. There is no pulmonic valvular regurgitation. Great Vessels The aortic root is normal size. Pericardium/Pleural There is no pericardial effusion. Question left pleural effusion. Conclusion A complete two-dimensional transthoracic echocardiogram was performed (2D, M-mode, Doppler and color flow Doppler). The left ventricle is hyperdynamic. Ejection Fraction = 70-75%. There is mild concentric left ventricular hypertrophy. There is a bioprosthetic aortic valve. AV max PG is 17mmHG. AV mean PG is 8mmHG. There is mild mitral regurgitation. There is mild tricuspid regurgitation. Question left pleural effusion. Final Reading Physician: Michelle Cortez signed on 05/09/2016 12:53 PM Ordering Physician: Maranda Connelly Performed By: Yasmine Ewing RDCS
[2016-05-09 14:30] VITALS: BP 122/50; PULSE 71; RESP 18; O2SAT 93
--- NOTE | 2016-05-09 14:32 | PDDCSUM ---
Discharge Summary Discharge Summary: DATE OF ADMISSION: 05/05/16 DATE OF DISCHARGE: 05/09/16 DISPOSITION: Home, self-care PRINCIPAL ADMISSION DIAGNOSIS: Bicuspid aortic valve with severe stenosis and a dilated ascending aorta PRINCIPAL DISCHARGE DIAGNOSES: 1. Status post aortic valve, aortic root and ascending aortic replacement with a bioprosthetic valved conduit. 2. Status post prophylactic ligation of the left atrial appendage. 3. Acute expected blood loss anemia 4. Postoperative left pneumothorax. HISTORY OF PRESENT ILLNESS: 66 yo male with a BAV, dilated ascending aorta, and known , referred for surgical repair after surveillance echo notable for incremental progression of severe stenosis with the onset of LVDD. No associated LVE, LVSD, significant LVH , documented arrhythmia, or obstructive coronary or carotid disease. Maximum diameter of the ascending aorta 4.5 cm at the level of the PA with concentric calcifications distally. Some dyspnea with strenuous activity endorsed, otherwise functional capacity unaffected. PAST MEDICAL HISTORY: 1. Type I DM, controlled - Dxd at age 17. Assoc with retinopathy and neuropathy. Followed by Dr Thakkar at [facility]. Preop A1c 7.2%. 2. Cataracts 3. Hyperlipidemia 4. Thyroid nodule, left lobe - followed by endocrinology. 5. Mitral valve prolapse with mild regurgitation. 6. Mild tricuspid valve regurgitation. MEDICATIONS ON ADMISSION: ASA 81 mg daily, Lisinopril 2.5 mg daily, Metoprolol 12.5 mg BID, Lipitor 40 mg daily, Insulin glargine 14u SQ daily, Insulin Lispro 3-10u SQ ac prn, Ibuprofen 600 mg daily prn, Viagra 75 mg daily prn ALLERGIES: NKDA MICA BUILDER: none PROCEDURES/IMAGIN/9 (Trish): Composite graft replacement of the aortic valve, aortic root and ascending aorta with a 25 mm Naidu Magna bovine pericardial bioprosthesis inside a 28 mm Hemashield graft, and with reimplantation of the coronary arteries into the graft. Prophylactic AtriClip ligation of the left atrial appendage. 05/09 (Asa): Transthoracic echocardiogram. ABBREVIATED HOSPITAL COURSE: Admitted on the day of surgery and taken to the OR. The aorta was not as calcified as anticipated and the transverse arch amenable to cannulation. The aortic valve was truly bicuspid and heavily calcified, with dilated and thin walled sinuses. The entire ascending aorta was therefore resected, to the base of the arch, and replaced with a constructed valved conduit. The procedure was well tolerated and promptly from CPB with preserved BiV systolic fx, normal bioprosthetic valve function, and mild (unchanged) MR. Noted to have a left PTX during closing and the pleura opened to allow communication with the anterior mediastinal chest tube. A small pleural mya suspected and expected to seal within 72 hrs. Transferred to the ICU in hemodynamically stable condition where a mild coagulopathy was corrected with 2u PRBC. No sustained vasoactive support or backup pacing required. Postop course remarkable for incomplete evacuation of the left PTX, without delays in tube removal. Rhythm stable throughout and felt to be appropriate for discharge home on POD#4. ASA alone used for antithrombotic prophylaxis. DISCHARGE MEDICATIONS: As on admission with the following adjustments: 1. Hold Viagra for 2 more weeks. 2. Max daily dose of Ibuprofen 3,200 mg. Not to exceed 1 week of regular use. NEW prescriptions: 1. Lasix 20 mg daily until back to baseline weight and no swelling. 2. Oxycodone IR 5 mg q 4-8 hrs prn incisional discomfort. 3. Oxygen @ 1 Lpm with activity or as directed by SpO2. DISCHARGE CLINICAL INFORMATION: Sternum grossly stable. Sternotomy and LLE venotomy CDI, sutured, + Dermabond. HR 70s. SBP 120s. SpO2 91% RA rest, 83-86% RA ambulation, correcting to >90% with 1 Lpm O2. Wt 6.5 kg above admission at 68 kilos. Hgb 10.9, HCT 32.7, Plt 102, Na 138, K 4.4, BUN 35, Cr 1.0 CXR: small left PTX, unchanged FOLLOW UP APPOINTMENTS: 1. Cardiology: with Dr Mueller in 4-6 weeks. Appointment to be established during surgical visit. 2. CV surgery: with Dr Chambers at [facility] on 05/17 at 12 pm. FOLLOW UP TESTING: CXR prior to surgical appointment.
== END 2016-05-09 14:51 | disposition home or self-care (01) | DRG 220 ==
LOC: F3N 05:44 → F2N 11:17 → F2W 05-06 14:02
PROVIDERS: ADMIT Thoracic Surgery (Cardiothoracic Vascular Surgery); ATTEND Thoracic Surgery (Cardiothoracic Vascular Surgery)
PROC: 02RX08Z Replacement of Thoracic Aorta, Ascending/Arch with Zooplastic Tissue, Open Approach (ICD-10-PCS; principal; 2016-05-05 07:27)
PROC: 5A1221Z Performance of Cardiac Output, Continuous (ICD-10-PCS; principal; 2016-05-05 07:27)
PROC: 02L70ZK Occlusion of Left Atrial Appendage, Open Approach (ICD-10-PCS; principal; 2016-05-05 07:27)
PROC: 30233N1 Transfusion of Nonautologous Red Blood Cells into Peripheral Vein, Percutaneous Approach (ICD-10-PCS; principal; 2016-05-05 07:27)
PROC: 02RF08Z Replacement of Aortic Valve with Zooplastic Tissue, Open Approach (ICD-10-PCS; principal; 2016-05-05 07:27)
DX: I77.810 Thoracic aortic ectasia (principal); Q23.1 Congenital insufficiency of aortic valve; Q25.43 Congenital aneurysm of aorta; J95.811 Postprocedural pneumothorax; D62 Acute posthemorrhagic anemia; I34.0 Nonrheumatic mitral (valve) insufficiency; D69.6 Thrombocytopenia, unspecified; E78.5 Hyperlipidemia, unspecified; E10.9 Type 1 diabetes mellitus without complications; Z82.49 Family history of ischemic heart disease and other diseases of the circulatory system
CPT/HCPCS: 82947-QW; 97116-GP; 97162-GP; 97166-GO; 97535-GO; C1768; G8978-GP-CK; G8979-GP-CI; G8985-GO-CI; G8986-GO-CI; G8987-GO-CI; G8987-GO-CJ; G8988-GO-CI; J0153; J0282; J0690; J1265; J1644; J1815; J1885; J2001; J2150; J2250; J2260; J2310; J2370; J2405; J2704; J2720; J2765; J2930; J3010; J7060; P9016; P9041

== ENCOUNTER → 2016-05-16 | Outpatient (CLI) | payer OTHER, MEDICARE | LOC: FIMAGING 11:14 | PROVIDERS: ATTEND Thoracic Surgery (Cardiothoracic Vascular Surgery) | DX: Z09 Encounter for follow-up examination after completed treatment for conditions other than malignant neoplasm (principal); Z98.890 Other specified postprocedural states ==

== ENCOUNTER 2016-06-14 20:06 | Inpatient (IN) | payer OTHER, MEDICARE ==
--- NOTE | 2016-06-14 20:37 | CPEKG ---
Heart Rate: 85 RR Interval: 706 P-R Interval: 176 QRSD Interval: 118 QT Interval: 392 QTC Interval: 467 P [place]: 79 QRS [place]: 70 T Wave [place]: -22 EKG Severity - ABNORMAL ECG - EKG Impression: SINUS RHYTHM EKG Impression: PROBABLE LEFT ATRIAL ABNORMALITY EKG Impression: INCOMPLETE RIGHT BUNDLE BRANCH BLOCK EKG Impression: BORDERLINE R WAVE PROGRESSION, ANTERIOR LEADS Electronically Signed By: Anton Horne 15-Jun-2016 23:53:26
[2016-06-14 21:07] LABS: % IMMATURE GRANULYOCYTES 0.5 % (0.0-1.1); ABSOLUTE IMMATURE GRANULOCYTES 0.04 10^3/uL (0.00-0.10); ADD DIFF? NO; ADD MORPH? NO; ADD SCAN? NO; ATYPICAL LYMPHOCYTE FLAG 0 (0-99); FRAGMENT RBC FLAG 0 (0-99); HEMATOCRIT 37.1 % (40.0-51.0); HEMOGLOBIN 11.7 g/dL (13.7-17.5); LEFT SHIFT FLG 0 (0-99); LIPEMIA HEMOLYSIS FLAG 80 (0-99); MEAN CELL HEMOGLOBIN 27.1 pg (27.9-34.1); MEAN CELL HEMOGLOBIN CONCENTR. 31.5 g/dL (32.4-36.7); MEAN CELL VOLUME 86.1 fL (81.5-99.8); MEAN PLATELET VOLUME 9.7 fL (8.7-11.7); PLATELET CLUMPS FLAG 0 (0-99); PLATELET COUNT 292 10^3/uL (150-400); RED BLOOD CELL COUNT 4.31 10^6/uL (4.40-6.38); RED CELL DISTRIBUTION WIDTH 13.7 % (11.5-15.2)
--- NOTE | 2016-06-14 21:08 | EDPHY ---
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 Patient has denied feeling palpitations, chest pain or shortness of breath. He does state that while his on the way here and will in the waiting UA did have a little bit of lightheadedness which has since resolved. He did have several episodes of palpitations postoperatively in the 1st week. Was started on metoprolol for those. Currently is taking 25 mg twice a day. Today he has been doing some mild yd work walking on the [place] hoses and so forth but nothing strenuous. No fevers or chills. No cough. No nausea or vomiting. Currently is without complaint ROS: 10 point Review of Systems is negative except as noted in the HPI. PMH: Aortic valve repair with a bovine valve on May 05 with aortic surgery Type 1 diabetes Medications: Lantus 15 units at night Humalog 1 unit for every 10 g of carbs Metoprolol 25 mg twice a day Aspirin 81 mg daily Lipitor Social History: No smoking, no alcohol, no recreational drug use Family History: non-contributory Physical Exam: Gen: Awake, Alert, No Distress HEENT: Nose: no rhinorrhea Eyes: PERRLA, EOMI Mouth: Moist mucosa Neck: Supple, no JVD Chest: nontender, lungs clear to auscultation Heart: S1, S2 normal, no murmur Abd: Soft, non-tender, no guarding Back: no CVA tenderness, no midline tenderness Ext: no edema, non-tender Skin: no rash Neuro: CN II-XII intact, Sensation grossly intact, Strength 5/5 in bilateral upper and lower extremities - Personal History Current Tetanus/Diphtheria Vaccine: Yes Current Tetanus Diphtheria and Acellular Pertussis (TDAP): Yes - Medical/Surgical History Hx Asthma: No Hx Chronic Respiratory Disease: No Hx Diabetes: Yes Hx Cardiac Disease: Yes Hx Renal Disease: No Hx Cirrhosis: No Hx Alcoholism: No Hx HIV/AIDS: No Hx Splenectomy or Spleen Trauma: No Other PMH: aortic stenosis, DM, afib, - Social History Smoking Status: Never smoked Constitutional: Initial Vital Signs Temperature (C) 36.9 C 06/14/16 20:24 Heart Rate 79 06/14/16 20:24 Respiratory Rate 16 06/14/16 20:24 Blood Pressure 113/68 06/14/16 20:24 O2 Sat (%) 96 06/14/16 20:24 O2 Delivery Mode Room Air Allergies/Adverse Reactions: No Known Allergies Allergy (Unverified 01/31/16 23:24) Home Medications: Medication Instructions Recorded Aspirin EC [Aspirin EC 81 mg (*)] 81 mg PO DAILY 01/29/10 Insulin Glargine [Lantus 100 14 units SC DAILY16 01/29/10 UNITS/ML (*)] Insulin Lispro [Humalog] 3 - 10 unit SQ AC PRN 10/02/13 Ibuprofen [Motrin (*)] 600 mg PO DAILY PRN 10/07/13 Metoprolol Tartrate [Lopressor 25 12.5 mg PO BID #40 tab 10/15/13 mg (*)] Acetaminophen [Tylenol 325mg (*)] 650 mg PO DAILY PRN 04/26/16 Atorvastatin Calcium [Lipitor 40 40 mg PO DAILY@18 04/26/16 mg (*)] Medical Decision Making - Diagnostics EKG Interpretation: ECG: Twelve lead time 2034. Sinus rhythm with a rate of 85, incomplete right bundle-branch block, no acute ST or T-wave changes. Rhythm strip shows frequent couplets and triplets of PVCs but none sustained beyond 3-4 beats. Approximately 50% of his be son rhythm strip far ventricular in appearance. ED Course/Re-evaluation: Case discussed with Dr. Edwards, cardiology. She is requesting 150 mg of IV amiodarone. Admit to the hospitalist service for monitoring overnight further evaluation. A I have discussed with Dr. Vazquez, hospitalist. He will admit to his service to telemetry for further monitoring. - Data Points Laboratory Results: Laboratory Results 06/14/16 20:41 06/14/16 20:41 06/14/16 06/14/16 20:41 20:41 WBC 8.88 10^3/uL 10^3/uL (3.80-9.50) RBC 4.31 10^6/uL L 10^6/uL (4.40-6.38) Hgb 11.7 g/dL L g/dL (13.7-17.5) Hct 37.1 % L % (40.0-51.0) MCV 86.1 fL fL (81.5-99.8) MCH 27.1 pg L pg (27.9-34.1) MCHC 31.5 g/dL L g/dL (32.4-36.7) RDW 13.7 % % (11.5-15.2) Plt Count 292 10^3/uL 10^3/uL (150-400) MPV 9.7 fL fL (8.7-11.7) Neut % (Auto) 73.1 % % (39.3-74.2) Lymph % (Auto) 16.6 % % (15.0-45.0) [place] % (Auto) 8.3 % % (4.5-13.0) Eos % (Auto) 0.9 % % (0.6-7.6) Baso % (Auto) 0.6 % % (0.3-1.7) Nucleat RBC Rel Count 0.0 % % (0.0-0.2) Absolute Neuts (auto) 6.50 10^3/uL 10^3/uL (1.70-6.50) Absolute Lymphs (auto) 1.47 10^3/uL 10^3/uL (1.00-3.00) Absolute Monos (auto) 0.74 10^3/uL 10^3/uL (0.30-0.80) Absolute Eos (auto) 0.08 10^3/uL 10^3/uL (0.03-0.40) Absolute Basos (auto) 0.05 10^3/uL 10^3/uL (0.02-0.10) Absolute Nucleated RBC 0.00 10^3/uL 10^3/uL (0-0.01) Immature Gran % 0.5 % % (0.0-1.1) Immature Gran # 0.04 10^3/uL 10^3/uL (0.00-0.10) Sodium 137 mEq/L mEq/L (134-144) Potassium 4.5 mEq/L mEq/L (3.5-5.2) Chloride 98 mEq/L mEq/L (97-110) Carbon Dioxide 27 mEq/l mEq/l (22-31) Anion Gap 12 mEq/L mEq/L (8-16) BUN 35 mg/dL H mg/dL (7-23) Creatinine 1.1 mg/dL mg/dL (0.7-1.3) Estimated GFR > 60 Glucose 243 mg/dL H mg/dL (70-100) Calcium 9.3 mg/dL mg/dL (8.5-10.4) Departure - Departure Disposition: [facility] Inpatient Acute Clinical Impression: Ventricular tachycardia Condition: Fair Referrals: Dacia Thakkar MD [Primary Care Provider] - As per Instructions
[2016-06-14 21:19] LABS: ANION GAP 12 mEq/L (8-16); CALCIUM 9.3 mg/dL (8.5-10.4); CARBON DIOXIDE 27 mEq/l (22-31); CHLORIDE 98 mEq/L (97-110); CREATININE 1.1 mg/dL (0.7-1.3); GLOMERULAR FILTRATION RATE > 60; GLUCOSE 243 mg/dL (70-100); POTASSIUM 4.5 mEq/L (3.5-5.2); SODIUM 137 mEq/L (134-144)
[2016-06-14] MEDS ORDERED: AMIODARONE HCL 150 MG/3 ML VIAL IV ONE (21:22)
[2016-06-14] MEDS ORDERED: AMIODARONE HCL 150 MG/100 ML BAG (1.5 MG/ML) IV ONE (21:45)
[2016-06-14] MEDS ORDERED: IBUPROFEN 200 MG TAB PO PRN (22:46)
[2016-06-14] MEDS ORDERED: AMIODARONE HCL 200 ML IV ONE (22:47)
[2016-06-14] MEDS ORDERED: ACETAMINOPHEN 325 MG TAB PO PRN (22:49)
[2016-06-14] MEDS ORDERED: D50W 25 GM/50 ML SYR IVP PRN (22:49)
--- NOTE | 2016-06-15 02:16 | GHP ---
[f rep st] HISTORY AND PHYSICAL DATE OF ADMISSION: 06/14/2016 CHIEF COMPLAINT: Ventricular tachycardia. HISTORY: The patient is a 66-year-old male who just over 1 month ago had a bioprosthetic aortic barry ve replacement for critical aortic stenosis due to a bicuspid aortic valve. At that time, he also h ad replacement of his ascending aortic root due to aneurysm and ligation of left atrial appendage. He has been doing well since surgery except for development of some tachyarrhythmias. He did not liu ve any tachyarrhythmias prior to surgery. Shortly after going home from the hospital, he started to develop palpitations and would see on his pulse oximeter that heart rate was very elevated, often u p to 165. This was very irregular, so it was presumed to be atrial fibrillation, although I do not believe that it was never caught on a true monitor. He increased his metoprolol. A prescription fo r Eliquis was given over the phone for a 30 day supply. He was initiated on outpatient cardiac herbert toring and after multiple equipment malfunctions eventually, monitoring was successful. He believes he has been adequately monitored for the last 2 weeks. He was called by Dr. Mueller today due to a 105 second sustained ventricular tachycardia. Patient was completely asymptomatic with this event. He was symptomatic earlier in the month with these other tachyarrhythmias prior to initiating the m onitoring. In coming to the emergency room, he developed an episode of lightheadedness with getting out of the car and then a 2nd episode of lightheadedness in the ER waiting room. There has been no chest pain or shortness of breath. His 30 day supply of Eliquis ran out last Monday, so he has bee n off it for a couple of days. Eliquis was extraordinarily expensive and if he does need long-term anticoagulation, he requests something cheaper. PAST MEDICAL HISTORY: 1. Diabetes, type, 1 diagnosed at age 18. 2. Bicuspid aortic valve status post bioprosthetic aortic valve replacement. 3. Ascending aortic aneurysm status post replacement. 4. Hyperlipidemia. 5. Thyroid nodule. 6. Small bowel obstruction status post lysis of adhesions. MEDICATIONS: Please see computer record for full detailed list. ALLERGIES: No known drug allergies. SOCIAL HISTORY: No smoking. No alcohol. He lives with his . 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 REVIEW OF SYSTEMS: Complete review of systems obtained. Review of systems is negative regarding co nstitutional, HEENT, GI, pulmonary, cardiovascular, , hematology, skin, musculoskeletal, endocrine , psych, except for positives and negatives as in HPI. FAMILY HISTORY: Reviewed, noncontributory to presenting complaint. PHYSICAL EXAMINATION: GENERAL: Well-developed, well-nourished male, in no acute distress. VITAL S IGNS: Temperature is 36.6, pulse 84, blood pressure 136/74, saturating 93% on room air. EYES: Nor mal conjunctivae. Pupils react to light. ENT: Normal ears and nose. Hearing intact. Normal lips and teeth. Oropharynx moist. NECK: Trachea midline. No thyromegaly. CHEST: Normal respiratory effort. LUNGS: Clear to auscultation bilaterally. CARDIOVASCULAR: Regular rhythm. No murmur. No lower extremity edema. ABDOMEN: Soft, nontender. No hepatosplenomegaly. SKIN: Warm, dry, int act, without rash. MUSCULOSKELETAL: No cyanosis or clubbing. Strength 5/5 upper and lower extremi ties. NEUROLOGIC: Cranial nerves intact. Normal sensation to light touch. PSYCH: Alert and orie nted x3. Normal affect. Normal judgment and insight. Normal memory. LABORATORY: White count 8.8, hematocrit 37.1, platelets 292. Sodium 137, potassium 4.5, chloride 9 8, bicarb 27, BUN 35, creatinine 1.1, glucose 243. EKG viewed by me. My personal interpretation is normal sinus rhythm, inferior T-wave inversions. ASSESSMENT AND PLAN: Problems: 1. Stable ventricular tachycardia. This was sustained for 105 seconds. Cardiology recommends IV a miodarone. Will put him on a drip overnight. Will keep his potassium greater than 4 and his magnes ium greater than 2. Will check troponins and rule out ischemia, but given his recent CT surgery and full cardiac evaluation, I doubt he is ischemic. Cardiology will see him in the morning. He is qu ite stable at this time. 2. Recent bioprosthetic aortic valve replacement with aortic root reconstruction. Will recheck an echocardiogram. 3. Possible atrial fibrillation. This has never been confirmed but was just presumed due to elevat ed heart rates at home that seemed irregular. He run out of getbetter! a few days ago and has yet to d iscuss with Cardiology whether or not this long-term anticoagulation is going to be needed. If it i s needed, he prefers warfarin due to expense of Eliquis. We will continue cardiac monitoring here. 4. Diabetes, type 1. Continue his Lantus plus lispro. Patient desires to follow his own sliding s kirti with carbohydrate counting while he was in the hospital, which has worked well for him on previ ous hospitalizations. CODE STATUS: Full. ADMISSION STATUS: Will admit to inpatient as he is medically complex. Anticipate greater than 2 mi dnights. DVT PROPHYLAXIS: Since he is off Eliquis, I will start him on subcu Lovenox prophylactically. /[id number]/MODL
[2016-06-15] MEDS ORDERED: AMIODARONE HCL 540 MG in D5W 300 ML IV ONE (05:30)
[2016-06-15 05:58] LABS: ANION GAP 9 mEq/L (8-16); CARBON DIOXIDE 26 mEq/l (22-31); CHLORIDE 103 mEq/L (97-110); GLOMERULAR FILTRATION RATE > 60; GLUCOSE 204 mg/dL (70-100); POTASSIUM 4.8 mEq/L (3.5-5.2); SODIUM 138 mEq/L (134-144)
[2016-06-15 06:10] LABS: TROPONIN I 0.013 ng/mL (0-0.034)
[2016-06-15] MEDS: INSULIN LISPRO 100 UNIT/ML SC SCH ×4 (07:36→21:17)
--- NOTE | 2016-06-15 07:37 | GCON ---
[f rep st] CONSULTATION DATE OF CONSULTATION: 06/14/2016 PRIMARY INTERN ARCHITECT: Wilber Mueller MD. CHIEF COMPLAINT: Ventricular tachycardia. HISTORY OF PRESENT ILLNESS: We were asked by Dr. Vazquez and Dr. Reyes to visit with the patient. T he patient is a pleasant 66-year-old male with a long history of type 1 diabetes. He has a bicuspid aortic valve and, on 05/05/2016 had an aortic valve replacement with a 25 mm Naidu Magna bovine p ericardial bioprosthesis inside a 28 mm Hemashield graft for aortic root and ascending aortic repair . He also had atrial clip ligation of the left atrial appendage. Overall had a fairly unremarkable postoperative course except for left pneumothorax. No arrhythmias were noted during his hospitaliz ation. 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 He continued to have intermittent palpitations the 1st week home po stoperatively. Dr. Chambers ordered an ambulatory monitor. Today, we were alerted that the patient alexa bergeron had 105 seconds of wide-complex tachycardia at 160 beats per minute. He was advised to come to [facility] emergency department. Upon my evaluation, he reports feeling well with no palpitations. He did have 2 episodes of lighthe adedness while in the waiting room and also while getting out of the car this evening but has not liu d any syncope. He has not had chest pressure, dyspnea, lower extremity edema. REVIEW OF SYSTEMS: A full 10-point review of systems was performed and is negative except that whic h is outlined above. He is back to nearly normal activity post cardiac surgery and has been eating well. No problems with his sternotomy. PAST MEDICAL HISTORY: 1. Type 1 diabetes since age 17. 2. Bicuspid aortic valve, status post aortic valve replacement and ascending aortic repair as detai led above. 3. Thyroid nodule followed by Endocrinology. 4. Hyperlipidemia. 5. Cataracts. 6. Mild mitral regurgitation. 7. Mild tricuspid regurgitation. OUTPATIENT MEDICATIONS: Metoprolol tartrate 25 mg twice daily. Insulin, aspirin 81 mg daily and Li pitor. SOCIAL HISTORY: The patient is , and his is at the bedside. He is does not smoke cigar ettes or drink alcohol. He denies illicit drug use. FAMILY HISTORY: Not applicable to the current case. PHYSICAL EXAM: VITAL SIGNS: Blood pressure 113/68, heart rate 79, oxygen saturation is 96% on room air. He is afebrile. GENERAL: Well-appearing older male, in no acute distress. HEENT: Sclerae are clear and free of jaundice. Mucous membranes are moist. Normocephalic, atraumatic. CARDIOVASC ULAR: JVP less than 10. Carotids equal and 2+. JVP is less than 10. Regular rate and rhythm with occasional ectopy. No murmur, rub or gallop. Sternotomy is well healed without drainage, fluctuan ce or tenderness. LUNGS: Clear to auscultation bilaterally without wheezes, rhonchi or rales. ABD OMEN: Soft, nontender, nondistended without bruits, masses or hepatosplenomegaly. EXTREMITIES: Wa rm and well perfused without cyanosis, clubbing, or edema. NEURO: Alert and oriented x3 without gr oss focal neurologic deficits. LABORATORY DATA: White count 8.9, hematocrit 37.1, and platelets are 292. Sodium 137, potassium 4. 5, chloride 98, bicarb 27, BUN 35, creatinine 1.1. Glucose is 243. His hemoglobin A1c was 7.2% on May 03. TSH was normal in July of 2015. EKG: Reviewed by me: Sinus rhythm. Left atrial abnormality. Nonspecific intraventricular conduct ion delay. No inferior T-wave inversions. Outpatient [employer] monitoring reviewed by me shows abena yaritza of wide-complex tachycardia that appeared to be ventricular tachycardia. His telemetry strips h ere show frequent triplets and couplets that are monomorphic and do appear ventricular in origin. Last echocardiogram was postoperatively on May 09 and shows normal LV systolic function, normall y functioning bioprosthetic aortic valve replacement, mild mitral and mild tricuspid regurgitation. ASSESSMENT AND PLAN: A 66-year-old male with type 1 diabetes, status post recent bioprosthetic AVR for bicuspid aortic valve and progressive aortic stenosis. He is now being admitted for significant ventricular ectopy that is minimally symptomatic. Etiology is ventricular ectopy, is not clear, as well as left electrolytes are normal. He does not have coronary disease. His ejection fraction is normal. This may be related to myocardial scarring or inflammation from his recent cardiac surgery . 1. Ventricular tachycardia: In the department he was given amiodarone 150 mg intravenously. If he has further significant ventricular ectopy, would start amiodarone drip at 1 mg/minute for 6 hours and then 0.5 mg/minute for 18 hours. Continue metoprolol tartrate 25 mg twice daily. When on 50 mg of metoprolol twice daily, he had a significant headache that resolved with a reduction in dose, th erefore I do not think he would tolerate a higher dose of beta gema. Would consider EP consult i n the morning. Will check magnesium. 2. Status post recent aortic valve replacement: The valve was functioning normally on echocardiogr am dated May 09. Cardiac exam is normal and not suggestive of any sort of heart failure or valv ular dysfunction. 3. Type 1 diabetes: He is on insulin. Appreciate Internal Medicine assistance. 4. Dyslipidemia: He is on Lipitor. Thank you for allowing us to participate in the patient's care. Will follow up with you. /[id number]/MODL
[2016-06-15] MEDS ORDERED: APIXABAN 2.5 MG TAB PO SCH (09:00)
[2016-06-15] MEDS ORDERED: METOPROLOL TARTRATE 25 MG TAB PO SCH ×2 (09:00)
[2016-06-15] MEDS ORDERED: ENOXAPARIN 40 MG/0.4 ML SYR SC SCH (09:00)
--- NOTE | 2016-06-15 09:31 | CPEKG ---
Heart Rate: 79 RR Interval: 759 P-R Interval: 184 QRSD Interval: 126 QT Interval: 424 QTC Interval: 487 P [place]: 79 QRS [place]: 74 T Wave [place]: -51 EKG Severity - ABNORMAL ECG - EKG Impression: SINUS RHYTHM EKG Impression: RIGHT BUNDLE BRANCH BLOCK Electronically Signed By: Anton Horne 15-Jun-2016 23:53:35
[2016-06-15] MEDS: ASPIRIN EC 81 MG TAB PO SCH (10:16)
--- NOTE | 2016-06-15 10:34 | ECHO ---
[id number] + + [address] : : [place] [address] : : [phone] + Adult Echocardiographic Report + ----+ :Name: Tracee HUSSEINgarcia Date: 06/15/2016 08:43 AM : : Hospital Admission Number: [id number] Location: 213: :: 1950 Gender: Male Height: 70 in : :Age: 66 yrs Race: WH Weight: 151 lb : :Reason For Study: VTACH : : BSA: 1.9 meters2 : :History: S/P Bioprosthetic aortic valve 04/2016. : + ----+ MMode/2D Measurements \T\ Calculations IVSd: 1.2 cm RVDd: 3.7 cm FS: 35.6 % LA dimension: LVPWd: 1.1 cm LVIDd: 3.8 cm EDV(Teich): 3.1 cm LVIDs: 2.4 cm 60.4 ml ESV(Teich): 20.6 ml EF(Teich): 65.9 % LVLd ap4: 8.4 cm SV(MOD-sp4): EDV(MOD-sp4): 64.0 ml 98.0 ml LVLs ap4: 6.7 cm ESV(MOD-sp4): 34.0 ml EF(MOD-sp4): 65.3 % Normal Measurement Values: + + :LVIDd (3.5-5.7cm) IVSd (0.6-1.1cm) LVPWd (0.6-1.1cm) Aortic Root (2.0-3.7cm)Left Atrium (1.5-4.0cm): :LV Vol(d) (76-115ml) LV Vol(s) (29-48ml) Ejec Fraction (50-65%)PV Lucho (0.6- 1.2m/s) TV Lucho (0.4-1.0m/s) : :MV E [place] (0.8-1.0m/s)MV A [place] (0.3-1.0m/s)LVOT Lucho (0.7-1.2m/s) Asc Ao Lucho ( 0.9-1.8m/s) : + + Doppler Measurements \T\ Calculations MV E max lucho: Ao V2 max: LV V1 mean PG: PA V2 max: 101.2 cm/sec 219.1 cm/sec 2.3 mmHg 141.2 cm/sec MV A max lucho: Ao max PG: LV V1 mean: PA max P.4 cm/sec 19.2 mmHg 67.3 cm/sec 8.0 mmHg MV E/A: 2.1 Ao mean PG: LV V1 VTI: 18.3 cm MV dec time: 11.8 mmHg 0.18 sec Ao V2 mean: 164.0 cm/sec Ao V2 VTI: 39.1 cm RAP systole: 10.0 mmHg Left Ventricle The left ventricle is normal in size and function. There is mild concentric left ventricular hypertrophy. Ejection Fraction = 65%. No regional wall motion abnormalities noted. Right Ventricle The right ventricle is normal in size and function. Atria The left atrial size is normal. Right atrial size is normal. A dilated inferior vena cava suggests increased right atrial pressure. Mitral Valve The mitral valve is normal in structure and function. There is mild mitral valve prolapse. There is no mitral valve stenosis. There is mild mitral regurgitation. Tricuspid Valve The tricuspid valve is normal in structure and function. There is no tricuspid stenosis. There is trace tricuspid regurgitation. Aortic Valve Mean/max pressure gradient 12/19mmHg. There is no aortic insufficiency. There is a bioprosthetic aortic valve. Small mobile echo noted near the bioprosthetic AV most likely a suture. Pulmonic Valve The pulmonic valve is normal in structure and function. There is no pulmonic valvular regurgitation. Great Vessels The aortic root graft measures normal in size. Pericardium/Pleural Echogenicity noted in the pericardial sack around the RV free wall; this may be clotted blood. There is a large pleural effusion. Conclusion A two-dimensional transthoracic echocardiogram with M-mode and Doppler was performed. The left ventricle is normal in size and function. There is mild concentric left ventricular hypertrophy. Ejection Fraction = 65%. A dilated inferior vena cava suggests increased right atrial pressure. There is mild mitral valve prolapse. There is mild mitral regurgitation. There is trace tricuspid regurgitation. There is a bioprosthetic aortic valve. Mean/max pressure gradient 12/19mmHg. Small mobile echodensity noted near the bioprosthetic AV most likely a suture. The aortic root graft measures normal in size. Echogenicity noted in the pericardial sac around the RV free wall; this may be clotted blood. There is a large pleural effusion. Final Reading Physician: Facundo Silvestre MD electronically signed on 06/15/2016 10:33 AM Ordering Physician: Danyell Rogers Performed By: Palak Hess
--- NOTE | 2016-06-15 14:46 | CPEKG ---
Heart Rate: 71 RR Interval: 845 P-R Interval: 192 QRSD Interval: 118 QT Interval: 456 QTC Interval: 496 P [place]: 88 QRS [place]: 84 T Wave [place]: -57 EKG Severity - ABNORMAL ECG - EKG Impression: SINUS RHYTHM EKG Impression: INCOMPLETE RIGHT BUNDLE BRANCH BLOCK Electronically Signed By: Anton Horne 15-Jun-2016 23:53:43
--- NOTE | 2016-06-15 16:53 | HOSPPROG ---
Hospitalist Progress Note Assessment/Plan: Assessment: 66-year-old male presents with acute ventricular tachycardia Plan: 1. Ventricular tachycardia. Acute, noted on home pacemaker device, per Dr. Silvestre may be potentiate from left ventricular outflow tract an AICD should be placed -will obtain cardiac MRI prior to AICD -initially placed on amiodarone drip, discontinued -initiate sotalol load beginning tonight, discontinue metoprolol -no evidence of recurrent atrial fibrillation, no indication for ongoing systemic anticoagulation -will defer to Dr. Mueller as to the exact timing of the AICD placement 2. Bicuspid aortic valve. Status post bioprosthetic aortic valve replacement, appears to be functioning well on echocardiogram 3. Diabetes mellitus type 1. Patient has good control and good home management with mealtime Humalog and daily Lantus -patient very distressed that he may not be able to continue his Humalog dosing in the hospital -patient counseled and reassured that we will make every effort to facilitate his home sliding scale regimen with Humalog dosed at the patient's discretion, with the nurse checking glucose levels pre meal and administering the Humalog per patient direction -continue Lantus 15 units at 4:00 p.m. 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 Diabetic diet Prophylaxis. Moderate risk patient, SCDs, hold pharm given potential surgery tomorrow Code. Full Disposition. Anticipated discharge uncertain this time, anticipated length stay will be based on sotalol load as well as potential AICD placement. Subjective: Patient reports he is feeling well, has not had any further chest discomfort Objective: Vital Signs Temp Pulse Resp BP Pulse Ox 36.6 C 78 19 132/66 H 95 06/15/16 11:29 06/15/16 11:29 06/15/16 11:29 06/15/16 11:29 06/15/16 11:29 06/14/16 06/15/16 06/16/16 05:59 05:59 05:59 Intake Total 240 Balance 240 - Time Spent With Patient Time Spent with Patient: greater than 35 minutes Time Spent with Patient: Greater than 35 minutes spent on this patients care, greater than 50% of time spent counseling, educating, and coordinating care regarding the above mentioned plan. - Physical Exam Constitutional: no apparent distress, appears nourished, not in pain Neurologic: AAOx3 Psychiatric: not encephalopathic, thought process linear, anxious ICD10 Worksheet Patient Problems: Problems Problem Status Onset Ventricular tachycardia Acute Aortic stenosis, severe Chronic Bicuspid aortic valve Chronic Diabetes mellitus Chronic Bioprosthetic aortic valve replacement during current hospitalization Acute Aortic aneurysm Acute Hx of aortic root repair Acute Primary localized osteoarthrosis, lower leg Chronic
[2016-06-15] MEDS: INSULIN GLARGINE 100 UNITS/ML SYRINGE SC SCH (16:57)
[2016-06-15 17:35] LABS: % IMMATURE GRANULYOCYTES 0.4 % (0.0-1.1); ABSOLUTE IMMATURE GRANULOCYTES 0.03 10^3/uL (0.00-0.10); ADD DIFF? NO; ADD MORPH? NO; ADD SCAN? NO; ATYPICAL LYMPHOCYTE FLAG 10 (0-99); FRAGMENT RBC FLAG 0 (0-99); HEMATOCRIT 38.4 % (40.0-51.0); LEFT SHIFT FLG 0 (0-99); LIPEMIA HEMOLYSIS FLAG 80 (0-99); MEAN CELL HEMOGLOBIN 26.8 pg (27.9-34.1); MEAN CELL HEMOGLOBIN CONCENTR. 31.3 g/dL (32.4-36.7); MEAN CELL VOLUME 85.7 fL (81.5-99.8); MEAN PLATELET VOLUME 9.6 fL (8.7-11.7); PLATELET CLUMPS FLAG 0 (0-99); PLATELET COUNT 268 10^3/uL (150-400); RED BLOOD CELL COUNT 4.48 10^6/uL (4.40-6.38); RED CELL DISTRIBUTION WIDTH 13.6 % (11.5-15.2)
[2016-06-15 17:40] LABS: APTT 29.2 SEC (23.0-38.0); INR 1.16 (0.83-1.16); PROTIME(PATIENT) 14.8 SEC (12.0-15.0)
[2016-06-15] MEDS: ATORVASTATIN CALCIUM 40 MG TAB PO SCH (17:44)
[2016-06-15 17:53] LABS: ANION GAP 11 mEq/L (8-16); CALCIUM 9.4 mg/dL (8.5-10.4); CARBON DIOXIDE 26 mEq/l (22-31); CHLORIDE 97 mEq/L (97-110); CREATININE 0.9 mg/dL (0.7-1.3); GLOMERULAR FILTRATION RATE > 60; GLUCOSE 273 mg/dL (70-100); POTASSIUM 4.7 mEq/L (3.5-5.2); SODIUM 134 mEq/L (134-144)
[2016-06-15] MEDS: SOTALOL HCL 80 MG TAB PO SCH (20:39)
--- NOTE | 2016-06-15 23:01 | CPEKG ---
Heart Rate: 77 RR Interval: 779 P-R Interval: 184 QRSD Interval: 118 QT Interval: 428 QTC Interval: 485 P [place]: 87 QRS [place]: 84 T Wave [place]: -28 EKG Severity - ABNORMAL ECG - EKG Impression: SINUS RHYTHM EKG Impression: PROBABLE LEFT ATRIAL ABNORMALITY EKG Impression: INCOMPLETE RIGHT BUNDLE BRANCH BLOCK Electronically Signed By: Anotn Horne 15-Jun-2016 23:53:48
[2016-06-16 04:50] LABS: INR 1.18 (0.83-1.16)
[2016-06-16 04:57] LABS: ANION GAP 7 mEq/L (8-16); CALCIUM 9.2 mg/dL (8.5-10.4); CARBON DIOXIDE 26 mEq/l (22-31); CHLORIDE 102 mEq/L (97-110); CREATININE 1.2 mg/dL (0.7-1.3); GLOMERULAR FILTRATION RATE > 60; GLUCOSE 196 mg/dL (70-100); MAGNESIUM 1.9 mg/dL (1.6-2.3); POTASSIUM 4.8 mEq/L (3.5-5.2); SODIUM 135 mEq/L (134-144)
[2016-06-16] MEDS: INSULIN LISPRO 100 UNIT/ML SC SCH ×4 (09:38→22:29)
[2016-06-16] MEDS: ASPIRIN EC 81 MG TAB PO SCH (09:41)
[2016-06-16] MEDS: SOTALOL HCL 80 MG TAB PO SCH ×2 (09:41→21:26)
--- NOTE | 2016-06-16 09:55 | PDCARPN ---
Cardiology Progress Note Assessment/Plan: HPI: Perez is a 66 year old man with a history of coronary artery disease, mild carotid artery disease, type I diabetes mellitus, aortic stenosis, bicuspid aortic valve and hyperlipidemia. He presents today s/p ascending aortic aneurysm repair with composite graft replacement of AV/root/asc ao with #25 magna inside #28 hemashield and prophylactic AtriClip ULYSSES on 05/05/2016. Assessment/Plan: 1. Documented sustained ventricular tachycardia on Cardionet monitoring. Cardiac MR MICHELO ordered, scheduled for 11 am today. We will proceed with AICD implantation after these images have been reviewed. The patient should be NPO after breakfast. 2. S/p ascending aortic aneurysm repair with composite graft replacement (#25 magna, #28 hemashield, prophylactic AtriClip ULYSSES). 3. Type 1 diabetes mellitus. 4. Atrial fibrillation post operatively. Subjective: I am feeling well today Reviewed/Discussed With: family, multidisciplinary team Objective: Vital Signs (8 Hrs) Temp Pulse Resp BP Pulse Ox 06/16/16 07:54 36.7 C 79 17 126/70 H 97 06/16/16 03:52 36.5 C 75 17 133/78 H 95 Intake/Output (24 Hrs) 06/15/16 06/16/16 06/17/16 05:59 05:59 05:59 Intake Total 540 Output Total 250 Balance 290 Intake: Oral (ml) 540 Output: Urine (ml) 250 Urinal 250 Other: Intake Quantity Yes Sufficient Number of Voids Toilet 1 Result Diagrams: 06/15/16 17:05 06/16/16 04:00 Telemetry: Runs of NSVT - Physical Exam Constitutional: WDWN, healthy appearing, no apparent distress Cardiovascular: regular rate and rhythm, no rubs, no gallops, systolic murmur Peripheral Pulses: 2+: carotid (R), carotid (L), femoral (R), femoral (L) Respiratory: clear to auscultate bilat, no crackles, no wheezes Gastrointestinal: normoactive bowel sounds Skin: warm Neurologic: AAOx3, CN II-XII grossly intact Psychiatric: cooperative, interactive, following commands, not anxious ICD10 Worksheet Patient Problems: Problems Problem Status Onset Ventricular tachycardia Acute Aortic aneurysm Acute Bioprosthetic aortic valve replacement during current hospitalization Acute Hx of aortic root repair Acute Aortic stenosis, severe Chronic Bicuspid aortic valve Chronic Diabetes mellitus Chronic Primary localized osteoarthrosis, lower leg Chronic
--- NOTE | 2016-06-16 10:26 | PDCARCONS ---
Cardiology Consult Reason for Consult: Ventricular tachycardia, near syncope Chief Complaint: ventricular tachycardia Requesting Physician: Dr. Wilber Mueller History of Present Illness: Consultation done on 06/15/2006, this is a late dictation. 66-year-old male with recent aortic valve surgery. He had some atrial arrhythmias post surgery and therefore was asked to wear a CardioNet monitor. A day prior to admission, on CardioNet monitoring, he was noted to have a 105 beat episode of ventricular tachycardia. He left the CardioNet monitor at home and came to the emergency department at Dr. Wilber Mueller's recommendation. As he was walking from the car to the emergency department, he had pounding in his chest and severe lightheadedness but unfortunately this could not be documented because his CardioNet monitor was at home. I visited with him on 2 [facility] floor with his present in the room. History Information - Allergies/Home Medication List Allergies/Adverse Reactions: No Known Allergies Allergy (Unverified 01/31/16 23:24) Home Medications: Aspirin EC [Aspirin EC 81 mg (*)] 81 mg PO DAILY 01/29/10 [Last Taken 06/14/16] Insulin Glargine [Lantus 100 UNITS/ML (*)] 15 units SC DAILY16 01/29/10 [Last Taken 06/14/16] Insulin Lispro [Humalog] 3 - 10 unit SQ ACHS 10/02/13 [Last Taken 06/14/16 22:00 ] Acetaminophen [Tylenol 325mg (*)] 650 mg PO DAILY PRN 04/26/16 [Last Taken 04/28] Atorvastatin Calcium [Lipitor 40 mg (*)] 40 mg PO DAILY@18 04/26/16 [Last Taken 06/14/16] Apixaban [Eliquis] 2.5 mg PO BID 06/14/16 [Last Taken 06/12/16] Ibuprofen [Motrin (*)] 400 - 600 mg PO DAILY PRN 06/14/16 [Last Taken 06/13/16 600MG] Metoprolol Tartrate [Lopressor 25 mg (*)] 12.5 mg PO BID 06/14/16 [Last Taken 18:00] I have personally reviewed and updated: family history, medical history, social history, surgical history - Social History Smoking Status: Never smoked Physical Exam Temp Pulse Resp BP Pulse Ox 36.7 C 79 17 126/70 H 97 06/16/16 07:54 06/16/16 07:54 06/16/16 07:54 06/16/16 07:54 06/16/16 07:54 Lab and Imaging 06/15/16 17:05 06/16/16 04:00 WBC 7.67 10^3/uL (3.80-9.50) 06/15/16 17:05 RBC 4.48 10^6/uL (4.40-6.38) 06/15/16 17:05 Hgb 12.0 g/dL (13.7-17.5) L 06/15/16 17:05 Hct 38.4 % (40.0-51.0) L 06/15/16 17:05 MCV 85.7 fL (81.5-99.8) 06/15/16 17:05 MCH 26.8 pg (27.9-34.1) L 06/15/16 17:05 MCHC 31.3 g/dL (32.4-36.7) L 06/15/16 17:05 RDW 13.6 % (11.5-15.2) 06/15/16 17:05 Plt Count 268 10^3/uL (150-400) 06/15/16 17:05 MPV 9.6 fL (8.7-11.7) 06/15/16 17:05 Neut % (Auto) 75.0 % (39.3-74.2) H 06/15/16 17:05 Lymph % (Auto) 15.3 % (15.0-45.0) 06/15/16 17:05 [place] % (Auto) 7.6 % (4.5-13.0) 06/15/16 17:05 Eos % (Auto) 1.2 % (0.6-7.6) 06/15/16 17:05 Baso % (Auto) 0.5 % (0.3-1.7) 06/15/16 17:05 Nucleat RBC Rel Count 0.0 % (0.0-0.2) 06/15/16 17:05 Absolute Neuts (auto) 5.76 10^3/uL (1.70-6.50) 06/15/16 17:05 Absolute Lymphs (auto) 1.17 10^3/uL (1.00-3.00) 06/15/16 17:05 Absolute Monos (auto) 0.58 10^3/uL (0.30-0.80) 06/15/16 17:05 Absolute Eos (auto) 0.09 10^3/uL (0.03-0.40) 06/15/16 17:05 Absolute Basos (auto) 0.04 10^3/uL (0.02-0.10) 06/15/16 17:05 Absolute Nucleated RBC 0.00 10^3/uL (0-0.01) 06/15/16 17:05 Immature Gran % 0.4 % (0.0-1.1) 06/15/16 17:05 Immature Gran # 0.03 10^3/uL (0.00-0.10) 06/15/16 17:05 PT 15.0 SEC (12.0-15.0) 06/16/16 04:00 INR 1.18 (0.83-1.16) H 06/16/16 04:00 APTT 29.2 SEC (23.0-38.0) 06/15/16 17:05 Sodium 135 mEq/L (134-144) 06/16/16 04:00 Potassium 4.8 mEq/L (3.5-5.2) 06/16/16 04:00 Chloride 102 mEq/L (97-110) 06/16/16 04:00 Carbon Dioxide 26 mEq/l (22-31) 06/16/16 04:00 Anion Gap 7 mEq/L (8-16) L 06/16/16 04:00 BUN 27 mg/dL (7-23) H 06/16/16 04:00 Creatinine 1.2 mg/dL (0.7-1.3) 06/16/16 04:00 Estimated GFR > 60 06/16/16 04:00 Glucose 196 mg/dL (70-100) H 06/16/16 04:00 POC Glucose 257 mg/dL (70-100) H 06/15/16 20:55 Calcium 9.2 mg/dL (8.5-10.4) 06/16/16 04:00 Magnesium 1.9 mg/dL (1.6-2.3) 06/16/16 04:00 Troponin I 0.013 ng/mL (0-0.034) 06/15/16 04:19 Visualized and Interpreted EKG results: Yes Telemetry: Sinus rhythm, nonsustained ventricular tachycardia A/P Assessment: 1. Recent aortic valve and aortic root surgery 2. Sustained ventricular tachycardia 3. Diabetes mellitus Plan: This is a very pleasant 66-year-old male who had aortic valve and root surgery 5 weeks ago . On CardioNet monitoring he had sustained ventricular tachycardia , 105 beats in duration. Subsequently upon walking to the emergency department from his car he had severe lightheadedness associated with palpitations, unfortunately while this was not documented this is likely ventricular tachycardia. He received intravenous amiodarone which he was on at the time of my interview with him. We plan to switch him to sotalol which will be continued for the foreseeable future, especially if it controls his ventricular tachycardia and he does not have any adverse side effects. We discussed the fact that he does not have a structurally normal heart given recent heart surgery and possible scar in the subaortic/left ventricular outflow tract area. We will do MRI to assess this. We discussed several options for long-term management. 1 of these is an ablation procedure, risks of the procedure were reviewed with him and his at length. We discussed that the procedure while highly successful does not have 100% success rate and given that he has had sustained ventricular tachycardia and near-syncope the only fail safe way to prevent sudden is with an implantable defibrillator. We also discussed the options of placing a LifeVest and assessing his response to sotalol therapy prior to making a decision regarding an ICD. Risks of ICD implantation were reviewed with him. Later in the evening, I received message from the patient's nurse that the patient had decided to move forward with an ICD. At this time the plan is for Dr. Wilber Mueller to place a dual-chamber ICD. He will be monitored in the hospital for 3 days to titrate his sotalol dose. If he does not tolerate sotalol or if he has ICD discharges despite sotalol therapy , we will have a low threshold for moving forward with an ablation procedure. I have discussed his case with Dr. Wilber Mueller and Dr. Leoncio Chambers. Specifically Dr. Chambers has told me that he is comfortable if we use a retro aortic approach across his bioprosthetic aortic valve to target his ventricular tachycardia if it becomes necessary.
[2016-06-16] MEDS ORDERED: GADOBUTROL 10 ML VIAL IVP ONE (11:37)
--- NOTE | 2016-06-16 11:40 | CPEKG ---
Heart Rate: 75 RR Interval: 800 P-R Interval: 176 QRSD Interval: 128 QT Interval: 452 QTC Interval: 505 P [place]: 75 QRS [place]: 76 T Wave [place]: -53 EKG Severity - ABNORMAL ECG - EKG Impression: SINUS RHYTHM EKG Impression: RIGHT BUNDLE BRANCH BLOCK Electronically Signed By: Anton Mckeon 16-Jun-2016 18:36:02
[2016-06-16] MEDS ORDERED: BACITRACIN IRRIGATION/NS 50,000 UNITS/1,000 ML BTL IRR ONE (13:17)
[2016-06-16] MEDS ORDERED: ceFAZolin 2 GM/DEXTROSE 100 ML IV ONE (13:17)
[2016-06-16] MEDS ORDERED: DIAZEPAM 5 MG TAB PO ONE (13:17)
[2016-06-16] MEDS ORDERED: diphenhydrAMINE 25 MG CAP PO ONE (13:17)
[2016-06-16] MEDS ORDERED: NS 1,000 ML IV SCH (13:30)
[2016-06-16] MEDS ORDERED: LIDOCAINE 1% 30 ML SDV ONE (15:07)
[2016-06-16] MEDS ORDERED: LIDO/EPI 1% **for epidural** 30 ML SDV ONE (15:08)
[2016-06-16] MEDS ORDERED: fentaNYL 100 MCG/2 ML INJ ONE ×2 (15:08→16:13)
[2016-06-16] MEDS ORDERED: MIDAZOLAM 2 MG/2 ML VIAL ONE ×2 (15:08→15:57)
[2016-06-16] MEDS ORDERED: IOPAMIDOL (ISOVUE-370) 150 ML BTL IV ONE (15:08)
[2016-06-16] MEDS ORDERED: BUPIVACAINE 0.5% 30 ML SDV ONE (15:08)
[2016-06-16] MEDS ORDERED: ETOMIDATE 40 MG/20 ML INJ ONE (16:03)
--- NOTE | 2016-06-16 16:15 | EPPROC ---
Electrophysiology Procedure Note: PROCEDURE: MRI conditional dual chamber automatic implantable cardioverter- defibrillator implantation. DATE OF PROCEDURE: 06/16/2016 DEVICE: Iperia 7 -Melvin DF4 ProMRI, serial #[id number]. MRI conditional device. LEADS: The atrial lead is a Biotronik Solia S 45, serial # [id number]. The ventricular lead is a Biotronik Protego S 65, serial # [id number]. COMPLICATIONS: None INDICATION AND APPROPRIATE USE CRITERIA: The device is being used for secondary prevention with documented sustained ventricular tachycardia on Cardionet monitoring. PROCEDURE IN DETAIL: After informed consent was obtained and n.p.o. status was confirmed, the region of the left subclavicular fossa was cleaned, prepped and draped in a sterile fashion. Approximately 30 mL of 1% lidocaine was utilized for local anesthesia. The skin was sharply incised with a #10 blade. Electrocautery and local pressure were used for hemostasis. Sharp and blunt dissection was used to form a pacemaker pocket overlying the pectoralis major fascia. An 18-gauge Cook needle was used to gain access to the left subclavian vein x 2. J wires were advanced into the inferior vena cava. A 7-F peel-away sheath was advanced over the lateral wire. Wire and stylet were removed. Ventricular lead was manipulated with care into the RV apex under direct fluoroscopic guidance and screwed into place. Threshold was tested and found to be 0.4 V at 0.4 ms width. R-wave amplitude was measured at 5.3 mV. Lead impedance was 607 Ohms. The lead was sutured in place with #0 Ethibond. The medial wire was used to place a second peel-away sheath wire and dilator was removed and a second pacer lead was manipulated with care into the right atrial appendage and screwed into place; however, on cinefluoroscopy the lead was dislodged from the right atrial appendage. A second lead was successfully manipulated into the right atrial appendage. The threshold was 1. V at 0.4 ms width. P-wave amplitude was 1.7 mV, lead impedance was 448 Ohms. The peel away sheath was removed and the leads were sutured in place with a #0 Ethibond. The pocket was thoroughly flushed and checked for bleeding. Hemostasis was established. The antibiotic soaked gauze was removed from the pocket. The atrial lead serial number was checked and placed in the upper pole lead housing of the pulse generator and set screw firmly applied. The procedure was repeated for the RV lead. The device was placed in the pocket and sutured in place with # 0 Ethibond. The skin was closed with a 3-layered 3-0 Vicryl, 2-0 Vicryl and 4-0 Monocryl repair with excellent wound edge opposition and hemostasis documented. The device was set with a VT1 monitoring zone of greater than 146 BPM, VT2 zone of 176 with ATP (Antitachycardia Pacing) x 3 with 3 bursts of 10 pulses at 85% with 10 millisecond decrement in between each burst. Initial shock will be 40 joules, followed by a 40 Joules shock x 8 if needed. The V fib zone is set at 222 BPM with ATP x 1 only if the rhythm meets stability criteria (12 msec difference between cycle lengths at maximum) otherwise the device will deliver a 40 Joule shocks x 8 cycles with alternating polarity between each of those shocks. The patient returned to the post cath recovery unit in good and stable condition where a stat postoperative chest x-ray and EKG will be obtained. FINAL IMPRESSION: Successful elective MRI conditional dual chamber automatic implantable cardioverter-defibrillator insertion without immediate complication. Patient Problems: Problems Problem Status Onset Ventricular tachycardia Acute Aortic stenosis, severe Chronic Bicuspid aortic valve Chronic Diabetes mellitus Chronic Bioprosthetic aortic valve replacement during current hospitalization Acute Aortic aneurysm Acute Hx of aortic root repair Acute Primary localized osteoarthrosis, lower leg Chronic
--- NOTE | 2016-06-16 18:01 | CPEKG ---
Heart Rate: 70 RR Interval: 857 P-R Interval: 180 QRSD Interval: 116 QT Interval: 460 QTC Interval: 497 P [place]: 84 QRS [place]: 70 T Wave [place]: -15 EKG Severity - ABNORMAL ECG - EKG Impression: SINUS RHYTHM EKG Impression: INCOMPLETE RIGHT BUNDLE BRANCH BLOCK EKG Impression: LEFT ATRIAL ENLARGEMENT Electronically Signed By: Anton Mckeon 16-Jun-2016 18:35:41
--- NOTE | 2016-06-16 18:31 | HOSPPROG ---
Hospitalist Progress Note Assessment/Plan: Assessment: 66-year-old male presents with acute ventricular tachycardia Plan: 1. Ventricular tachycardia. Acute, requiring AICD today -cardiac MRI w/o abnl findings -initiated on sotalol load, QTc 480 -getting CXR to r/o PTX 2. Bicuspid aortic valve. Status post bioprosthetic aortic valve replacement, appears to be functioning well on echocardiogram 3. Diabetes mellitus type 1. Patient has good control and good home management with mealtime Humalog and daily Lantus -Humalog dosed at the patient's discretion, with the nurse checking glucose levels pre meal and administering the Humalog per patient direction -continue Lantus 15 units at 4:00 p.m. daily -if issues arise, Dr. Byrd is his network control operator Diet. Diabetic diet Prophylaxis. Moderate risk patient, SCDs, initiate lovenox tomorrow Code. Full Disposition. Anticipated discharge uncertain this time, anticipated length stay will be based on sotalol load as well as potential AICD placement. Subjective: Patient feeling well after surgery, minimal left chest pain Objective: Vital Signs Temp Pulse Resp BP Pulse Ox 36.7 C 79 17 126/70 H 97 06/16/16 07:54 06/16/16 07:54 06/16/16 07:54 06/16/16 07:54 06/16/16 07:54 Laboratory Results 06/15/16 17:05 06/16/16 04:00 06/15/16 06/16/16 06/17/16 05:59 05:59 05:59 Intake Total 540 240 Output Total 250 Balance 290 240 PT 15.0 SEC (12.0-15.0) 06/16/16 04:00 INR 1.18 (0.83-1.16) H 06/16/16 04:00 - Physical Exam Constitutional: no apparent distress, appears nourished, not in pain Cardiovascular: regular rate and rhythym, no murmur, rub, or gallop Respiratory: no respiratory distress, no rales or rhonchi, clear to auscultation Gastrointestinal: normoactive bowel sounds, soft, non-tender abdomen, no palpable masses Skin: other (No overlying erythema or induration at the AICD site) Neurologic: AAOx3 Psychiatric: interacting appropriately, not anxious, not encephalopathic, thought process linear ICD10 Worksheet Patient Problems: Problems Problem Status Onset Ventricular tachycardia Acute Aortic stenosis, severe Chronic Bicuspid aortic valve Chronic Diabetes mellitus Chronic Bioprosthetic aortic valve replacement during current hospitalization Acute Aortic aneurysm Acute Hx of aortic root repair Acute Primary localized osteoarthrosis, lower leg Chronic
[2016-06-16] MEDS: INSULIN GLARGINE 100 UNITS/ML SYRINGE SC SCH (19:47)
[2016-06-16] MEDS: ATORVASTATIN CALCIUM 40 MG TAB PO SCH (19:48)
[2016-06-16] MEDS: HYDROCODONE/APAP 5/325 TAB PO PRN (21:27)
--- NOTE | 2016-06-16 22:59 | CPEKG ---
Heart Rate: 70 RR Interval: 857 P-R Interval: 188 QRSD Interval: 124 QT Interval: 456 QTC Interval: 493 P [place]: 80 QRS [place]: 76 T Wave [place]: -56 EKG Severity - ABNORMAL ECG - EKG Impression: SINUS RHYTHM EKG Impression: RIGHT BUNDLE BRANCH BLOCK Electronically Signed By: Anton Horne 17-Jun-2016 08:26:03
[2016-06-17] MEDS: HYDROCODONE/APAP 5/325 TAB PO PRN (04:12)
[2016-06-17 04:37] LABS: % IMMATURE GRANULYOCYTES 0.5 % (0.0-1.1); ABSOLUTE IMMATURE GRANULOCYTES 0.04 10^3/uL (0.00-0.10); ADD DIFF? NO; ADD MORPH? NO; ADD SCAN? NO; ATYPICAL LYMPHOCYTE FLAG 10 (0-99); FRAGMENT RBC FLAG 0 (0-99); HEMATOCRIT 37.6 % (40.0-51.0); HEMOGLOBIN 11.8 g/dL (13.7-17.5); LEFT SHIFT FLG 0 (0-99); LIPEMIA HEMOLYSIS FLAG 80 (0-99); MEAN CELL HEMOGLOBIN 26.6 pg (27.9-34.1); MEAN CELL HEMOGLOBIN CONCENTR. 31.4 g/dL (32.4-36.7); MEAN CELL VOLUME 84.9 fL (81.5-99.8); MEAN PLATELET VOLUME 9.8 fL (8.7-11.7); PLATELET CLUMPS FLAG 0 (0-99); PLATELET COUNT 266 10^3/uL (150-400); RED BLOOD CELL COUNT 4.43 10^6/uL (4.40-6.38); RED CELL DISTRIBUTION WIDTH 13.8 % (11.5-15.2)
[2016-06-17 04:55] LABS: ANION GAP 8 mEq/L (8-16); CARBON DIOXIDE 27 mEq/l (22-31); CHLORIDE 103 mEq/L (97-110); CREATININE 1.1 mg/dL (0.7-1.3); GLOMERULAR FILTRATION RATE > 60; GLUCOSE 328 mg/dL (70-100); POTASSIUM 5.3 mEq/L (3.5-5.2); SODIUM 138 mEq/L (134-144)
[2016-06-17] MEDS: INSULIN LISPRO 100 UNIT/ML SC SCH ×3 (08:29→18:04)
[2016-06-17] MEDS: ASPIRIN EC 81 MG TAB PO SCH (08:47)
[2016-06-17] MEDS: SOTALOL HCL 80 MG TAB PO SCH ×2 (08:47→21:17)
--- NOTE | 2016-06-17 09:47 | PDCARPN ---
Cardiology Progress Note Chief Complaint: chronic cough Assessment/Plan: HPI: Perez is a 66 year old man with a history of non-flow limiting coronary artery disease, carotid artery disease, type I diabetes mellitus, aortic stenosis, bicuspid aortic valve s/p ascending aortic aneurysm repair with composite graft replacement of AV/root/asc ao with #25 magna inside #28 Hemashield and prophylactic AtriClip ULYSSES on 05/05/2016. He had a documented episode of sustained ventricular fibrillation on CardioNet monitoring that was associated with lightheadedness/dizziness and near-syncope. He is s/p AICD implantation yesterday (06/17/16). He is feeling well today without pain. He continues to have a chronic cough most likely related to a known left-sided pleural effusion. Assessment/Plan: 1. Documented sustained ventricular tachycardia on CardioNet monitoring with associated lightheadedness/dizziness and near-syncope. Cardiac MR was unremarkable for ARVD with normal RV morphology and contractility. The patient underwent successful dual-chamber MRI conditional AICD implantation yesterday. x -ray yesterday showed no evidence of pneumothorax. Will continue Sotalol loading. 2. S/p ascending aortic aneurysm repair with composite graft replacement (#25 magna, #28 hemashield, prophylactic AtriClip ULYSSES). 3. Type 1 diabetes mellitus. Well controlled. 4. Atrial fibrillation post operatively. Has been in normal sinus rhythm since hospital admission. 5. Moderate left-sided pleural effusion. I have ordered a left-sided ultrasound guided thoracentesis as the patient has had a chronic cough since his surgery and the effusion has not shown significant improvement over the past 5+ weeks. He did have breakfast this morning. A TEN POINT ROS IS NEGATIVE EXCEPT STATED ABOVE Subjective: I am feeling well today Reviewed/Discussed With: family, multidisciplinary team Time Spent With Patient: 15 minutes Objective: Vital Signs (8 Hrs) Temp Pulse Resp BP Pulse Ox 06/17/16 07:45 36.1 C 81 14 113/73 97 06/17/16 04:26 36.6 C 74 18 124/75 H 97 Intake/Output (24 Hrs) 06/16/16 06/17/16 06/18/16 05:59 05:59 05:59 Intake Total 540 390 Output Total 250 100 Balance 290 290 Intake: Oral (ml) 540 390 Output: Urine (ml) 250 100 Urinal 250 100 Other: Intake Quantity Yes Yes Sufficient Number of Voids Toilet 1 Result Diagrams: 06/17/16 04:00 06/17/16 04:00 - Physical Exam Constitutional: healthy appearing, no apparent distress Cardiovascular: regular rate and rhythm, no rubs, systolic murmur Peripheral Pulses: 2+: carotid (R), carotid (L), femoral (R), femoral (L) Respiratory: reduced air movement (left side) Gastrointestinal: normoactive bowel sounds Skin: warm Neurologic: AAOx3 Psychiatric: cooperative, interactive, following commands, not anxious ICD10 Worksheet Patient Problems: Problems Problem Status Onset Ventricular tachycardia Acute Aortic aneurysm Acute Bioprosthetic aortic valve replacement during current hospitalization Acute Hx of aortic root repair Acute Aortic stenosis, severe Chronic Bicuspid aortic valve Chronic Diabetes mellitus Chronic Primary localized osteoarthrosis, lower leg Chronic
[2016-06-17] MEDS ORDERED: LIDOCAINE 1% 30 ML SDV ONE (10:02)
[2016-06-17] MEDS ORDERED: NA BICARBONATE 50 MEQ/50 ML VIAL ONE (10:02)
--- NOTE | 2016-06-17 10:58 | CPEKG ---
Heart Rate: 74 RR Interval: 811 P-R Interval: 172 QRSD Interval: 114 QT Interval: 452 QTC Interval: 502 P [place]: 80 QRS [place]: 73 T Wave [place]: -52 EKG Severity - ABNORMAL ECG - EKG Impression: SINUS RHYTHM EKG Impression: INCOMPLETE RIGHT BUNDLE BRANCH BLOCK Electronically Signed By: Anton Horne 18-Jun-2016 10:42:56
--- NOTE | 2016-06-17 15:13 | HOSPPROG ---
Hospitalist Progress Note Assessment/Plan: Assessment: 66-year-old male presents with acute ventricular tachycardia Plan: 1. Ventricular tachycardia. Acute, s/p AICD w/o complications -initiated on sotalol load, QTc 480 -6th dose tomorrow AM, then load will be complete, may reduce dosage to 40mg bid depending on QT (whether to continue monitoring on tele for additional 24hrs s/p dose adjustment will be determined by patient and cards) -no further arrhythmia since loading 2. Bicuspid aortic valve. Status post bioprosthetic aortic valve replacement, appears to be functioning well on echocardiogram 3. Diabetes mellitus type 1. Patient has good control and good home management with mealtime Humalog and daily Lantus -Humalog dosed at the patient's discretion, with the nurse checking glucose levels pre meal and administering the Humalog per patient direction -continue Lantus 15 units at 4:00 p.m. daily -if issues arise, Dr. Byrd is his hand winder 4. Pleural effusion. L side, likely post-op accumulation from initial surgery, has not resolved over the subsequent 5 weeks -s/p therapeutic thora today, 700cc Diet. Diabetic diet Prophylaxis. Moderate risk patient, SCDs, holding lovenox given thora Code. Full Disposition. Anticipated discharge 06/18 s/p completion of sotalol load. Subjective: Patient is feeling well, getting good sleep, has not moved his bowels today Objective: Vital Signs Temp Pulse Resp BP Pulse Ox 37.2 C 79 16 128/71 H 98 06/17/16 12:30 06/17/16 12:30 06/17/16 12:30 06/17/16 12:30 06/17/16 12:30 Laboratory Results 06/17/16 04:00 06/17/16 04:00 06/16/16 06/17/16 06/18/16 05:59 05:59 05:59 Intake Total 540 390 Output Total 250 100 Balance 290 290 PT 15.0 SEC (12.0-15.0) 06/16/16 04:00 INR 1.18 (0.83-1.16) H 06/16/16 04:00 - Physical Exam Constitutional: no apparent distress, appears nourished, not in pain Cardiovascular: regular rate and rhythym, systolic murmur (106 systolic with closing snap), No irregularly irregular, No tachycardia, No edema Respiratory: reduced air movement (Left base), inspiratory crackles (Left base) , No expiratory wheeze, No bronchial breath sounds, No respiratory distress Gastrointestinal: normoactive bowel sounds, soft, non-tender abdomen, no palpable masses Skin: other (Mild edema and mild tenderness over the left anterior chest without any overlying erythema, ecchymosis, induration) Neurologic: AAOx3, No facial droop Psychiatric: interacting appropriately, not anxious, not encephalopathic, thought process linear ICD10 Worksheet Patient Problems: Problems Problem Status Onset Ventricular tachycardia Acute Aortic stenosis, severe Chronic Bicuspid aortic valve Chronic Diabetes mellitus Chronic Bioprosthetic aortic valve replacement during current hospitalization Acute Aortic aneurysm Acute Hx of aortic root repair Acute Primary localized osteoarthrosis, lower leg Chronic
[2016-06-17] MEDS: INSULIN GLARGINE 100 UNITS/ML SYRINGE SC SCH (16:25)
[2016-06-17] MEDS ORDERED: LACTULOSE 20 GM/30 ML UDCUP PO PRN (17:08)
[2016-06-17] MEDS ORDERED: MAGNESIUM HYDROXIDE 30 ML UDCUP PO PRN (17:08)
[2016-06-17] MEDS ORDERED: BISACODYL 10 MG SUPP PR PRN (17:08)
[2016-06-17] MEDS ORDERED: POLYETHYLENE GLYCOL 3350 17 GM PKT PO PRN (17:08)
[2016-06-17] MEDS: ATORVASTATIN CALCIUM 40 MG TAB PO SCH (17:51)
[2016-06-17] MEDS: SENNOSIDES/DOCUSATE SODIUM TAB PO SCH (21:35)
--- NOTE | 2016-06-17 22:55 | CPEKG ---
Heart Rate: 82 RR Interval: 732 P-R Interval: 180 QRSD Interval: 124 QT Interval: 436 QTC Interval: 510 P [place]: 84 QRS [place]: 79 T Wave [place]: -53 EKG Severity - ABNORMAL ECG - EKG Impression: SINUS RHYTHM EKG Impression: RIGHT BUNDLE BRANCH BLOCK Electronically Signed By: Anton Horne 18-Jun-2016 10:43:05
[2016-06-18] MEDS: INSULIN LISPRO 100 UNIT/ML SC SCH ×3 (01:08→12:41)
[2016-06-18 07:41] VITALS: BP 113/71; PULSE 81; RESP 21; TEMP 98.3; O2SAT 94
[2016-06-18] MEDS: ASPIRIN EC 81 MG TAB PO SCH (09:19)
[2016-06-18] MEDS: SENNOSIDES/DOCUSATE SODIUM TAB PO SCH (09:20)
[2016-06-18] MEDS: SOTALOL HCL 80 MG TAB PO SCH (09:56)
--- NOTE | 2016-06-18 11:36 | PDCARPN ---
Cardiology Progress Note Chief Complaint: VT/ L pleural effusion Assessment/Plan: Assessment: 66 year old M with a history of non-flow limiting coronary artery disease, carotid artery disease, T1DM, aortic stenosis, BAV s/p ascending aortic aneurysm repair with composite graft replacement of AV/root/asc ao with #25 magna inside #28 Hemashield and prophylactic AtriClip ULYSSES on 05/05/2016. He had a documented episode of sustained VT on CardioNet monitoring that was associated with lightheadedness/dizziness and near-syncope. He is s/p AICD implantation yesterday (06/17/16). #. Documented sustained VT on CardioNet monitoring with associated lightheadedness/dizziness and near-syncope. Cardiac MR was unremarkable for ARVD with normal RV morphology and contractility patient underwent successful dual-chamber MRI conditional AICD implantation x-ray yesterday showed no evidence of pneumothorax Sotalol loading complete Arm precautions reviewed #. S/p ascending aortic aneurysm repair with composite graft replacement (#25 magna, #28 hemashield, prophylactic AtriClip ULYSSES) healing well #. Type 1 diabetes mellitus Well controlled. #. Atrial fibrillation post operatively. Has been in normal sinus rhythm since hospital admission last bouts documented were in April will continue Eliquis for now/ pt given enough doses until he is seen in office next week #. Moderate left-sided pleural effusion. s/p thoracentesis yesterday with 700 cc output 06/18/16 11:32 Subjective: Feels OK. No LH, cough currently. Reviewed/Discussed With: hospitalist Time Spent With Patient: 35 minutes Objective: Vital Signs (8 Hrs) Temp Pulse Resp BP Pulse Ox 06/18/16 07:39 98.3 F 81 21 H 113/71 94 06/18/16 05:00 99 F 82 18 100/79 96 Intake/Output (24 Hrs) 06/17/16 06/18/16 06/19/16 05:59 05:59 05:59 Intake Total 390 2080 Output Total 100 Balance 290 2080 Intake: Oral (ml) 390 2080 Output: Urine (ml) 100 Urinal 100 Other: Intake Quantity Yes Sufficient Number of Voids Toilet 4 Result Diagrams: 06/17/16 04:00 06/17/16 04:00 - Physical Exam Constitutional: healthy appearing, no apparent distress Eyes: PERRL Ears, Nose, Mouth, Throat: moist mucous membranes Cardiovascular: regular rate and rhythm, no murmurs Respiratory: reduced air movement, inspiratory crackles (on L side) Gastrointestinal: normoactive bowel sounds, no tenderness Neurologic: AAOx3 Psychiatric: cooperative, interactive ICD10 Worksheet Patient Problems: Problems Problem Status Onset Ventricular tachycardia Acute Aortic aneurysm Acute Bioprosthetic aortic valve replacement during current hospitalization Acute Hx of aortic root repair Acute Aortic stenosis, severe Chronic Bicuspid aortic valve Chronic Diabetes mellitus Chronic Primary localized osteoarthrosis, lower leg Chronic
--- NOTE | 2016-06-18 15:33 | GDS ---
[f rep st] DISCHARGE SUMMARY DISCHARGE DIAGNOSES: 1. Documented sustained ventricular tachycardia. 2. Status post ascending aortic aneurysm repair with composite graft replacement. 3. Type 1 diabetes. 4. Postoperative atrial fibrillation. 5. Moderate left-sided pleural effusion. 6. Bicuspid aortic valve status post bioprosthetic replacement. HISTORY OF PRESENT ILLNESS: A 66-year-old male who presented on 06/15/2016 with acute ventricular t achycardia. For details of patient's initial presentation, please see the history and physical date d 06/15/2016. CONSULTATIVE SERVICES: Cardiology. PROCEDURES: On 06/16/2016, the patient underwent implantation of a dual chamber AICD. HOSPITAL COURSE BY ISSUE: 1. Sustained ventricular tachycardia. The patient was admitted, evaluated and had dual chamber AIC D placement. Successfully was loaded with sotalol and is being discharged with sotalol 80 twice rock ly. He will follow in the outpatient setting with Cardiology on 06/21 for his first postprocedural followup. 2. Postoperative atrial fibrillation. Patient was initiated on Eliquis and will be continued on th is medication at disposition. Again, to follow in the Cardiology office for long-term monitoring. 3. Status post ascending aortic aneurysm repair. Patient is healing well. Will continue to be fol lowed by CT surgery in the outpatient setting. 4. Diabetes type 1. Patient was continued on his home regimen with good control. MEDICATIONS AT TIME OF DISPOSITION: Please reference medication reconciliation printed on 7. PENDING STUDIES: At the time of this dictation are none. FOLLOWUP APPOINTMENTS: 1. With Cardiology on 06/21/2016 for his first postprocedural followup. 2. With Cardiothoracic Surgery for long-term postprocedural followup. TIME SPENT: I spent greater than 30 minutes in the planning and coordination of this discharge. /[id number]/MODL
== END 2016-06-18 13:35 | disposition home or self-care (01) | DRG 227 ==
LOC: INTOOBSV 21:28 → F2W 22:09 → OBSVTOIN 06-15 10:39
PROVIDERS: ADMIT Internal Medicine; ATTEND Internal Medicine
PROC: 02HK3KZ Insertion of Defibrillator Lead into Right Ventricle, Percutaneous Approach (ICD-10-PCS; principal; 2016-06-16)
PROC: 02H63KZ Insertion of Defibrillator Lead into Right Atrium, Percutaneous Approach (ICD-10-PCS; principal; 2016-06-16)
PROC: 0JH608Z Insertion of Defibrillator Generator into Chest Subcutaneous Tissue and Fascia, Open Approach (ICD-10-PCS; principal; 2016-06-16)
PROC: 0W9B3ZZ Drainage of Left Pleural Cavity, Percutaneous Approach (ICD-10-PCS; 2016-06-17)
DX: I47.2 Ventricular tachycardia (principal); J90 Pleural effusion, not elsewhere classified; E10.9 Type 1 diabetes mellitus without complications; I48.91 Unspecified atrial fibrillation; E78.5 Hyperlipidemia, unspecified; Z95.3 Presence of xenogenic heart valve
CPT/HCPCS: 96374; A9585; C1721; C1777; C1898; G0378; J0282; J0690; J1650; J1815; J2250; J3010; Q9967